=== PATIENT | male | born 1940 | race African-American/Black ===

== ENCOUNTER → 2017-04-21 | Outpatient (CLI) | payer MEDICARE, BC ==
[~2017-04-21] MED LIST: AMLO1TAB15 PO; ASPI-1159 PO; ATOR10TA PO; ATOR80TA PO; CLOP75TA16 PO; FERR-63 PO; SITA50TA3 PO; ZET10 PO
== END | disposition home or self-care (01) ==
LOC: US 09:38
PROVIDERS: ATTEND Internal Medicine Nephrology
DX: N28.1 Cyst of kidney, acquired (principal)
CPT/HCPCS: 76770

== ENCOUNTER 2018-06-28 04:12 | Inpatient (IN) | payer MEDICARE, BC ==
[~2018-06-28] VITALS: Ht 180.3 cm; Wt 74.5 kg
[2018-06-28] MEDS ORDERED: NITROGLYCERIN 0.4MG TABLET SL SL PRN (05:00)
[2018-06-28] MEDS ORDERED: MORPHINE SULFATE 4 MG/ML CPJ (NOT FOR IM USE) IV ONE (05:00)
[2018-06-28] MEDS ORDERED: ASPIRIN 81MG TABLET PO ONE (05:00)
[2018-06-28] MEDS ORDERED: ONDANSETRON HCL 4MG/2ML INJ IV ONE (05:30)
[2018-06-28 05:37] LABS: BASOPHILS % 0.3 % (0.0-2.0); HEMATOCRIT. 40.1 % (42.0-52.0); MEAN CORPUSCULAR VOLUME 89.1 fL (80.0-94.0); MONOCYTES % 2.6 % (2.0-8.0); NEUTROPHILS % 83.1 % (40.0-76.0); PLATELET 318 x1000/uL (130-400)
[2018-06-28 05:42] LABS: INR 1.2; PARTIAL THROMBOPLASTIN TIME 30.6 sec (23.4-31.0); PROTHROMBIN TIME 12.2 sec (9.1-11.1)
[2018-06-28 05:49] LABS: CHLORIDE 106 mEq/L (98-107)
[2018-06-28] MEDS ORDERED: MAGNESIUM/ALUMINUM HYDROXIDE/SIMETHICONE 30ML UDC PO PRN (08:45)
[2018-06-28] MEDS ORDERED: LEVOFLOXACIN 500MG PREMIX 100 ML IV SCH ×2 (08:45→11:00)
[2018-06-28] MEDS ORDERED: ENOXAPARIN 40MG/0.4ML SYR SUBCUT SCH (08:45)
[2018-06-28 08:50] VITALS: BP 153/82
[2018-06-28] MEDS: ENOXAPARIN 30MG/0.3ML SYR SUBCUT SCH (09:49)
[2018-06-28] MEDS: DEXT 5%/0.45% NACL 1000ML 1,000 ML IV SCH (11:05)
[2018-06-28] MEDS ORDERED: DEXTROSE 50% WATER 50ML SYRINGE IV PRN (11:15)
[2018-06-28 12:00] VITALS: BP 154/76
[2018-06-28] MEDS: BLOOD SUGAR DIAGNOSTIC STRIP TEST SCH ×3 (12:11→21:43)
[2018-06-28] MEDS: METRONIDAZOLE 500 MG PREMIX 100 ML IV SCH ×2 (12:11→21:43)
[2018-06-28] MEDS: INSULIN LISPRO 100 UNITS/ML SUBCUT SCH ×3 (12:12→21:00)
[2018-06-28] MEDS ORDERED: METRONIDAZOLE 500 MG PREMIX 100 ML IV SCH (14:00)
[2018-06-28 16:00] VITALS: BP 162/60
[2018-06-28 16:20] VITALS: BP 157/63
[2018-06-28 17:03] LABS: *AMPHETAMINES SCREEN URINE NEGATIVE (NEGATIVE); *BARBITURATES SCREEN URINE NEGATIVE (NEGATIVE); *BENZODIAZEPINES SCREEN URINE NEGATIVE (NEGATIVE); *COCAINE SCREEN URINE NEGATIVE (NEGATIVE); METHADONE URINE SCREEN NEGATIVE (NEGATIVE); OPIATES URINE SCREEN PRESUMTIVE POSITIVE (NEGATIVE); PHENCYCLIDINE URINE SCREEN NEGATIVE (NEGATIVE)
[2018-06-28 17:04] LABS: CANNABINOID URINE SCREEN NEGATIVE (NEGATIVE)
[2018-06-28] MEDS: ASPIRIN 81MG EC TABLET PO SCH (17:11)
[2018-06-28] MEDS: CLOPIDOGREL 75MG TABLET PO SCH (17:11)
[2018-06-28 20:00] VITALS: BP 124/68
[2018-06-28] MEDS: ATORVASTATIN CALCIUM 40MG TABLET PO SCH (21:42)
[2018-06-28] MEDS: AMLODIPINE 5MG TABLET PO SCH (21:42)
[2018-06-29 00:27] VITALS: BP 151/69
[2018-06-29] MEDS: DEXT 5%/0.45% NACL 1000ML 1,000 ML IV SCH ×2 (05:58→14:20)
[2018-06-29 06:09] VITALS: BP 148/64
[2018-06-29 06:51] LABS: HEMATOCRIT. 35.7 % (42.0-52.0); HEMOGLOBIN. 11.5 g/dL (14.0-18.0); MEAN CORPUSCULAR HEMOGLOBIN 28.5 pg (28.0-32.0); MEAN CORPUSCULAR VOLUME 88.7 fL (80.0-94.0); MEAN PLATELET VOLUME 8.5 fl (7.4-10.4); PLATELET 265 x1000/uL (130-400); RED BLOOD CELL COUNT 4.03 mill/uL (4.7-6.1); RED CELL DISTRIBUTION WIDTH 16.1 % (11.6-14.6)
[2018-06-29] MEDS: BLOOD SUGAR DIAGNOSTIC STRIP TEST SCH ×4 (07:40→21:00)
[2018-06-29 08:00] VITALS: BP 162/86
[2018-06-29] MEDS: INSULIN LISPRO 100 UNITS/ML SUBCUT SCH ×4 (08:10→21:00)
[2018-06-29 08:59] LABS: CHLORIDE 106 mEq/L (98-107)
[2018-06-29 09:14] LABS: LDL CHOLESTEROL 27 mg/dL (5-100)
[2018-06-29 09:15] LABS: HDL CHOLESTEROL 43 mg/dL (40-59)
[2018-06-29] MEDS: METRONIDAZOLE 500 MG PREMIX 100 ML IV SCH ×2 (09:56→22:36)
[2018-06-29] MEDS: AMLODIPINE 5MG TABLET PO SCH ×2 (09:56→22:27)
[2018-06-29] MEDS: ENOXAPARIN 30MG/0.3ML SYR SUBCUT SCH (09:56)
[2018-06-29] MEDS: CLOPIDOGREL 75MG TABLET PO SCH (09:56)
[2018-06-29] MEDS: ASPIRIN 81MG EC TABLET PO SCH (09:57)
[2018-06-29 11:14] LABS: PLATELET ESTIMATE NORMAL
[2018-06-29] MEDS ORDERED: ENOXAPARIN 40MG/0.4ML SYR SUBCUT SCH (11:30)
[2018-06-29 12:00] VITALS: BP 160/74
[2018-06-29] MEDS ORDERED: SODIUM POLYSTYRENE SULFONATE 15 G/60 ML BOT PO SCH (12:00)
[2018-06-29] MEDS: METOPROLOL TARTRATE 25MG TABLET PO SCH ×2 (14:18→21:00)
[2018-06-29] MEDS: CLONIDINE 0.1MG TABLET PO PRN (14:18)
[2018-06-29] MEDS: LEVOFLOXACIN 250MG PREMIX 50 ML IV SCH (14:18)
[2018-06-29 16:55] VITALS: BP 160/74
[2018-06-29 20:00] VITALS: BP 149/74
[2018-06-29] MEDS: ATORVASTATIN CALCIUM 40MG TABLET PO SCH (22:25)
[2018-06-29] MEDS: ACETAMINOPHEN 325MG TABLET PO PRN ×2 (22:26)
[2018-06-30] VITALS: BP 130/62
[2018-06-30 04:00] VITALS: BP 123/72
[2018-06-30] MEDS: ONDANSETRON HCL 4MG/2ML INJ IV PRN ×2 (04:12→08:25)
[2018-06-30] MEDS: DEXT 5%/0.45% NACL 1000ML 1,000 ML IV SCH ×2 (04:20→15:19)
[2018-06-30 07:04] LABS: HEMATOCRIT. 34.6 % (42.0-52.0); HEMOGLOBIN. 11.6 g/dL (14.0-18.0); MEAN CORPUSCULAR HEMOGLOBIN 29.2 pg (28.0-32.0); MEAN CORPUSCULAR VOLUME 87.3 fL (80.0-94.0); MEAN PLATELET VOLUME 8.3 fl (7.4-10.4); PLATELET 253 x1000/uL (130-400); RED BLOOD CELL COUNT 3.97 mill/uL (4.7-6.1); RED CELL DISTRIBUTION WIDTH 15.7 % (11.6-14.6)
[2018-06-30] MEDS: BLOOD SUGAR DIAGNOSTIC STRIP TEST SCH ×4 (07:40→21:44)
[2018-06-30] MEDS: INSULIN LISPRO 100 UNITS/ML SUBCUT SCH ×4 (08:10→21:00)
[2018-06-30] MEDS: ASPIRIN 81MG EC TABLET PO SCH (08:27)
[2018-06-30] MEDS: CLOPIDOGREL 75MG TABLET PO SCH (08:27)
[2018-06-30] MEDS: ENOXAPARIN 80MG/0.8ML SYR SUBCUT SCH (08:27)
[2018-06-30] MEDS: METRONIDAZOLE 500 MG PREMIX 100 ML IV SCH ×2 (08:27→21:21)
[2018-06-30] MEDS: AMLODIPINE 5MG TABLET PO SCH ×2 (08:29→21:20)
[2018-06-30] MEDS: METOPROLOL TARTRATE 25MG TABLET PO SCH ×2 (08:29→21:21)
[2018-06-30 11:06] LABS: PHOSPHORUS 3.7 mg/dL (2.5-4.9)
[2018-06-30] MEDS: LEVOFLOXACIN 250MG PREMIX 50 ML IV SCH (11:24)
[2018-06-30 12:01] VITALS: BP 137/67
[2018-06-30] MEDS: HYDROMORPHONE HCL/PF 2MG/ML CPJ IV PRN (15:23)
[2018-06-30 15:24] LABS: PLATELET ESTIMATE NORMAL
[2018-06-30 16:00] VITALS: BP 127/64
[2018-06-30 20:00] VITALS: BP 157/65
[2018-06-30] MEDS: ATORVASTATIN CALCIUM 40MG TABLET PO SCH (21:20)
[2018-07-01] VITALS: BP 159/62
[2018-07-01 04:00] VITALS: BP_SYST 59
[2018-07-01] MEDS: BLOOD SUGAR DIAGNOSTIC STRIP TEST SCH ×4 (06:37→21:00)
[2018-07-01] MEDS: DEXT 5%/0.45% NACL 1000ML 1,000 ML IV SCH ×2 (06:40→21:53)
[2018-07-01] MEDS: INSULIN LISPRO 100 UNITS/ML SUBCUT SCH ×4 (07:36→21:00)
[2018-07-01 07:44] LABS: HEMATOCRIT. 33.7 % (42.0-52.0); HEMOGLOBIN. 11.1 g/dL (14.0-18.0); MEAN CORPUSCULAR HEMOGLOBIN 29.2 pg (28.0-32.0); MEAN CORPUSCULAR VOLUME 88.8 fL (80.0-94.0); MEAN PLATELET VOLUME 8.4 fl (7.4-10.4); PLATELET 254 x1000/uL (130-400); RED CELL DISTRIBUTION WIDTH 15.8 % (11.6-14.6)
[2018-07-01 07:53] LABS: PLATELET ESTIMATE NORMAL
[2018-07-01 08:00] VITALS: BP 176/75
[2018-07-01] MEDS: CLOPIDOGREL 75MG TABLET PO SCH (10:33)
[2018-07-01] MEDS: AMLODIPINE 5MG TABLET PO SCH ×2 (10:35→21:52)
[2018-07-01] MEDS: ASPIRIN 81MG EC TABLET PO SCH (10:35)
[2018-07-01] MEDS: METOPROLOL TARTRATE 25MG TABLET PO SCH ×2 (10:35→21:53)
[2018-07-01] MEDS: METRONIDAZOLE 500 MG PREMIX 100 ML IV SCH ×2 (10:37→21:51)
[2018-07-01 12:00] VITALS: BP 124/55
[2018-07-01] MEDS: ENOXAPARIN 80MG/0.8ML SYR SUBCUT SCH (12:12)
[2018-07-01 16:00] VITALS: BP 188/70
[2018-07-01] MEDS: CLONIDINE 0.1MG TABLET PO PRN (16:56)
[2018-07-01] MEDS: HYDROMORPHONE HCL/PF 2MG/ML CPJ IV PRN (16:59)
[2018-07-01 20:00] VITALS: BP 201/78
[2018-07-01] MEDS: ATORVASTATIN CALCIUM 40MG TABLET PO SCH (21:52)
[2018-07-02] VITALS: BP 129/62
[2018-07-02] MEDS: HYDROMORPHONE HCL/PF 2MG/ML CPJ IV PRN ×2 (02:09→09:00)
[2018-07-02 04:00] VITALS: BP 119/58
[2018-07-02 07:11] LABS: HEMATOCRIT. 34.3 % (42.0-52.0); HEMOGLOBIN. 11.3 g/dL (14.0-18.0); MEAN CORPUSCULAR HEMOGLOBIN 28.8 pg (28.0-32.0); MEAN PLATELET VOLUME 8.4 fl (7.4-10.4); PLATELET 300 x1000/uL (130-400); RED BLOOD CELL COUNT 3.94 mill/uL (4.7-6.1); RED CELL DISTRIBUTION WIDTH 15.9 % (11.6-14.6)
[2018-07-02] MEDS: BLOOD SUGAR DIAGNOSTIC STRIP TEST SCH ×4 (07:40→21:18)
[2018-07-02 08:00] VITALS: BP 139/71
[2018-07-02] MEDS: METRONIDAZOLE 500 MG PREMIX 100 ML IV SCH ×2 (08:58→21:18)
[2018-07-02] MEDS: DEXT 5%/0.45% NACL 1000ML 1,000 ML IV SCH (08:58)
[2018-07-02] MEDS: CLOPIDOGREL 75MG TABLET PO SCH (08:58)
[2018-07-02] MEDS: ASPIRIN 81MG EC TABLET PO SCH (08:59)
[2018-07-02] MEDS: ENOXAPARIN 80MG/0.8ML SYR SUBCUT SCH (08:59)
[2018-07-02] MEDS: AMLODIPINE 5MG TABLET PO SCH ×2 (08:59→21:18)
[2018-07-02] MEDS: METOPROLOL TARTRATE 25MG TABLET PO SCH ×2 (08:59→21:18)
[2018-07-02] MEDS: ONDANSETRON HCL 4MG/2ML INJ IV PRN (09:00)
[2018-07-02] MEDS: INSULIN LISPRO 100 UNITS/ML SUBCUT SCH ×4 (09:19→21:00)
[2018-07-02] MEDS: LEVOFLOXACIN 250MG PREMIX 50 ML IV SCH (11:44)
[2018-07-02 12:00] VITALS: BP 123/63
[2018-07-02] MEDS: ACETAMINOPHEN 325MG TABLET PO PRN ×2 (12:40→21:17)
[2018-07-02 16:00] VITALS: BP 139/73
[2018-07-02] MEDS: DIATR MEGLU/DIATRIZOATE SOLN 30ML PO NR (17:13)
[2018-07-02 20:00] VITALS: BP 151/67
[2018-07-02 20:00] LABS: PLATELET ESTIMATE NORMAL
[2018-07-02] MEDS: ATORVASTATIN CALCIUM 40MG TABLET PO SCH (21:17)
[2018-07-03] VITALS (7 sets, daily range): BP systolic 137–163; BP diastolic 60–78
[2018-07-03] MEDS: DEXT 5%/0.45% NACL 1000ML 1,000 ML IV SCH (04:45)
[2018-07-03] MEDS: BLOOD SUGAR DIAGNOSTIC STRIP TEST SCH ×4 (06:32→21:15)
[2018-07-03 07:41] LABS: HEMATOCRIT. 31.2 % (42.0-52.0); HEMOGLOBIN. 10.4 g/dL (14.0-18.0); MEAN CORPUSCULAR HEMOGLOBIN 28.8 pg (28.0-32.0); MEAN PLATELET VOLUME 8.3 fl (7.4-10.4); PLATELET 304 x1000/uL (130-400); RED BLOOD CELL COUNT 3.62 mill/uL (4.7-6.1); RED CELL DISTRIBUTION WIDTH 15.9 % (11.6-14.6)
[2018-07-03] MEDS: ENOXAPARIN 80MG/0.8ML SYR SUBCUT SCH (08:26)
[2018-07-03] MEDS: INSULIN LISPRO 100 UNITS/ML SUBCUT SCH ×4 (08:27→21:13)
[2018-07-03] MEDS: ACETAMINOPHEN 325MG TABLET PO PRN (08:28)
[2018-07-03] MEDS: ASPIRIN 81MG EC TABLET PO SCH (08:28)
[2018-07-03] MEDS: AMLODIPINE 5MG TABLET PO SCH ×2 (08:28→21:15)
[2018-07-03] MEDS: CLOPIDOGREL 75MG TABLET PO SCH (08:28)
[2018-07-03] MEDS: METOPROLOL TARTRATE 25MG TABLET PO SCH ×2 (08:29→21:15)
[2018-07-03] MEDS: METRONIDAZOLE 500 MG PREMIX 100 ML IV SCH ×2 (08:29→21:13)
[2018-07-03] MEDS ORDERED: BUPIVACAINE HCL 0.5% (5MG/ML) 50ML ONE (10:59)
[2018-07-03] MEDS ORDERED: NORMAL SALINE 0.9% 10 ML SYR ONE (10:59)
[2018-07-03] MEDS ORDERED: BACITRACIN 50,000 UNITS/VIAL ONE (11:00)
[2018-07-03] MEDS ORDERED: PROPOFOL 200MG/20ML VIAL IV ONE (11:23)
[2018-07-03] MEDS ORDERED: ROCURONIUM BROMIDE 10MG/ML VIAL 5ML IV ONE (11:23)
[2018-07-03] MEDS ORDERED: FENTANYL CITRATE/PF 50MCG/ML 2ML VIAL ONE (11:23)
[2018-07-03] MEDS ORDERED: PHENYLEPHRINE HCL 10 MG/ML 1ML (IV VIAL) IV ONE (11:24)
[2018-07-03] MEDS ORDERED: SODIUM CHLORIDE 0.9% 10ML VIAL ONE ×2 (11:24→13:14)
[2018-07-03] MEDS ORDERED: EPHEDRINE SULFATE 50MG/ML VIAL ONE (11:24)
[2018-07-03] MEDS ORDERED: MIDAZOLAM HCL 2 MG/2 ML VIAL ONE (11:24)
[2018-07-03] MEDS ORDERED: LIDOCAINE HCL 1% 20ML VIAL (Pyxis) INJ ONE (11:24)
[2018-07-03] MEDS ORDERED: SUCCINYLCHOLINE CHLORIDE 200MG/10ML IV ONE (11:25)
[2018-07-03] MEDS ORDERED: ONDANSETRON HCL 4MG/2ML INJ IV PRN (11:30)
[2018-07-03] MEDS: DEXT 5%/0.45% NACL KCL 20MEQ/L 1,000 ML IV SCH ×2 (12:00→20:04)
[2018-07-03] MEDS ORDERED: ONDANSETRON HCL 4MG/2ML INJ ONE (12:06)
[2018-07-03] MEDS ORDERED: DEXAMETHASONE 4MG/ML 1ML VIAL ONE (12:06)
[2018-07-03] MEDS ORDERED: GLYCOPYRROLATE 0.2 MG/ML 2ML VIAL ONE (12:13)
[2018-07-03] MEDS ORDERED: NEOSTIGMINE METHYLSULFATE 1MG/ML 10 ML VIAL ONE (12:13)
[2018-07-03] MEDS ORDERED: LABETALOL HCL 5MG/ML VIAL 20ML IV ONE (13:13)
[2018-07-03] MEDS ORDERED: HYDRALAZINE 20MG/ML VIAL ONE (13:14)
[2018-07-03] MEDS ORDERED: MORPHINE SULFATE 4 MG/ML CPJ (NOT FOR IM USE) IV NR (13:45)
[2018-07-03 14:05] LABS: PLATELET ESTIMATE NORMAL
[2018-07-03] MEDS: MORPHINE SULFATE 4 MG/ML CPJ (NOT FOR IM USE) IV PRN ×2 (15:03→18:43)
[2018-07-03] MEDS: DIATR MEGLU/DIATRIZOATE SOLN 30ML PO NR (16:06)
[2018-07-03 18:08] LABS: HEMATOCRIT. 30.4 % (42.0-52.0); MEAN CORPUSCULAR HEMOGLOBIN 28.5 pg (28.0-32.0); MEAN CORPUSCULAR VOLUME 86.8 fL (80.0-94.0); MEAN PLATELET VOLUME 8.4 fl (7.4-10.4); PLATELET 305 x1000/uL (130-400); RED CELL DISTRIBUTION WIDTH 16.1 % (11.6-14.6)
[2018-07-03 20:20] LABS: PLATELET ESTIMATE NORMAL
[2018-07-03] MEDS: ATORVASTATIN CALCIUM 40MG TABLET PO SCH (21:00)
[2018-07-04] VITALS (12 sets, daily range): BP systolic 156–186; BP diastolic 66–80
[2018-07-04] MEDS: MORPHINE SULFATE 4 MG/ML CPJ (NOT FOR IM USE) IV PRN ×3 (00:59→18:23)
[2018-07-04] MEDS: CLONIDINE 0.1MG TABLET PO PRN (02:10)
[2018-07-04] MEDS: DEXT 5%/0.45% NACL KCL 20MEQ/L 1,000 ML IV SCH ×2 (06:18→17:44)
[2018-07-04] MEDS ORDERED: ENALAPRIL 2.5MG/2ML VIAL 2ML IV PRN (06:45)
[2018-07-04] MEDS: BLOOD SUGAR DIAGNOSTIC STRIP TEST SCH ×4 (07:01→21:18)
[2018-07-04] MEDS: INSULIN LISPRO 100 UNITS/ML SUBCUT SCH ×4 (07:20→21:40)
[2018-07-04] MEDS: METRONIDAZOLE 500 MG PREMIX 100 ML IV SCH ×2 (08:43→21:16)
[2018-07-04] MEDS: ASPIRIN 81MG EC TABLET PO SCH (08:44)
[2018-07-04] MEDS: METOPROLOL TARTRATE 25MG TABLET PO SCH ×2 (08:44→21:17)
[2018-07-04] MEDS: CLOPIDOGREL 75MG TABLET PO SCH (08:45)
[2018-07-04] MEDS: AMLODIPINE 5MG TABLET PO SCH ×2 (08:45→21:17)
[2018-07-04] MEDS: ENOXAPARIN 80MG/0.8ML SYR SUBCUT SCH (08:46)
[2018-07-04] MEDS ORDERED: CLONIDINE HCL 0.3MG/24HR PATCH TD SCH (09:00)
[2018-07-04] MEDS ORDERED: ENOXAPARIN 40MG/0.4ML SYR SUBCUT SCH (09:00)
[2018-07-04] MEDS: LEVOFLOXACIN 250MG PREMIX 50 ML IV SCH (11:42)
[2018-07-04 11:46] LABS: HEMATOCRIT. 30.7 % (42.0-52.0); MEAN CORPUSCULAR HEMOGLOBIN 28.1 pg (28.0-32.0); MEAN CORPUSCULAR VOLUME 86.4 fL (80.0-94.0); MEAN PLATELET VOLUME 8.5 fl (7.4-10.4); PLATELET 375 x1000/uL (130-400); RED BLOOD CELL COUNT 3.56 mill/uL (4.7-6.1); RED CELL DISTRIBUTION WIDTH 16.3 % (11.6-14.6)
[2018-07-04] MEDS: HYDRALAZINE HCL 50MG TABLET PO SCH ×2 (14:19→21:57)
[2018-07-04 16:49] LABS: PLATELET ESTIMATE NORMAL
[2018-07-04] MEDS: ATORVASTATIN CALCIUM 40MG TABLET PO SCH (21:16)
[2018-07-05] VITALS (12 sets, daily range): BP systolic 132–161; BP diastolic 57–72
[2018-07-05] MEDS: MORPHINE SULFATE 4 MG/ML CPJ (NOT FOR IM USE) IV PRN ×3 (02:04→13:08)
[2018-07-05] MEDS: DEXT 5%/0.45% NACL KCL 20MEQ/L 1,000 ML IV SCH (04:06)
[2018-07-05] MEDS: HYDRALAZINE HCL 50MG TABLET PO SCH (06:10)
[2018-07-05] MEDS: BLOOD SUGAR DIAGNOSTIC STRIP TEST SCH ×4 (06:41→20:52)
[2018-07-05 07:24] LABS: BASOPHILS % 0.2 % (0.0-2.0); EOSINOPHILS % 0.3 % (0.0-5.0); HEMATOCRIT. 26.7 % (42.0-52.0); HEMOGLOBIN. 8.9 g/dL (14.0-18.0); LYMPHOCYTES % 8.9 % (20.0-50.0); MEAN CORPUSCULAR HEMOGLOBIN 28.7 pg (28.0-32.0); MEAN CORPUSCULAR VOLUME 85.5 fL (80.0-94.0); MEAN PLATELET VOLUME 8.1 fl (7.4-10.4); MONOCYTES % 9.7 % (2.0-8.0); NEUTROPHILS % 80.9 % (40.0-76.0); PLATELET 407 x1000/uL (130-400); RED BLOOD CELL COUNT 3.12 mill/uL (4.7-6.1); RED CELL DISTRIBUTION WIDTH 15.9 % (11.6-14.6)
[2018-07-05 07:48] LABS: PHOSPHORUS 2.3 mg/dL (2.5-4.9)
[2018-07-05] MEDS: INSULIN LISPRO 100 UNITS/ML SUBCUT SCH ×4 (07:54→20:52)
[2018-07-05] MEDS: METRONIDAZOLE 500 MG PREMIX 100 ML IV SCH ×2 (08:02→20:53)
[2018-07-05] MEDS: ASPIRIN 81MG EC TABLET PO SCH (08:02)
[2018-07-05] MEDS: AMLODIPINE 5MG TABLET PO SCH ×2 (08:03→20:51)
[2018-07-05] MEDS: METOPROLOL TARTRATE 25MG TABLET PO SCH (08:03)
[2018-07-05] MEDS: CLOPIDOGREL 75MG TABLET PO SCH (08:04)
[2018-07-05] MEDS: ENOXAPARIN 80MG/0.8ML SYR SUBCUT SCH (08:05)
[2018-07-05] MEDS: SODIUM CHLORIDE 0.45% 1,000 ML IV SCH ×2 (09:00→22:14)
[2018-07-05] MEDS: HYDRALAZINE HCL 100MG TABLET PO SCH ×2 (13:09→22:13)
[2018-07-05] MEDS: ATORVASTATIN CALCIUM 40MG TABLET PO SCH (20:51)
[2018-07-05] MEDS: METOPROLOL TARTRATE 50MG TABLET PO SCH (20:52)
[2018-07-06] VITALS (12 sets, daily range): BP systolic 106–160; BP diastolic 40–73
[2018-07-06] MEDS: HYDRALAZINE HCL 100MG TABLET PO SCH ×3 (06:22→22:28)
[2018-07-06] MEDS: BLOOD SUGAR DIAGNOSTIC STRIP TEST SCH ×3 (06:53→21:04)
[2018-07-06 07:15] LABS: BASOPHILS % 0.2 % (0.0-2.0); EOSINOPHILS % 0.7 % (0.0-5.0); HEMATOCRIT. 27.1 % (42.0-52.0); HEMOGLOBIN. 9.1 g/dL (14.0-18.0); LYMPHOCYTES % 7.4 % (20.0-50.0); MEAN CORPUSCULAR HEMOGLOBIN 29.3 pg (28.0-32.0); MEAN CORPUSCULAR VOLUME 86.8 fL (80.0-94.0); MEAN PLATELET VOLUME 7.8 fl (7.4-10.4); MONOCYTES % 8.5 % (2.0-8.0); NEUTROPHILS % 83.2 % (40.0-76.0); PLATELET 434 x1000/uL (130-400); RED BLOOD CELL COUNT 3.12 mill/uL (4.7-6.1); RED CELL DISTRIBUTION WIDTH 16.2 % (11.6-14.6)
[2018-07-06] MEDS: INSULIN LISPRO 100 UNITS/ML SUBCUT SCH ×3 (07:20→21:00)
[2018-07-06] MEDS: CLOPIDOGREL 75MG TABLET PO SCH (08:15)
[2018-07-06] MEDS: ASPIRIN 81MG EC TABLET PO SCH (08:15)
[2018-07-06] MEDS: AMLODIPINE 5MG TABLET PO SCH ×2 (08:15→20:57)
[2018-07-06] MEDS: METOPROLOL TARTRATE 50MG TABLET PO SCH ×2 (08:16→20:57)
[2018-07-06] MEDS: ENOXAPARIN 80MG/0.8ML SYR SUBCUT SCH (08:17)
[2018-07-06] MEDS: MORPHINE SULFATE 4 MG/ML CPJ (NOT FOR IM USE) IV PRN (12:04)
[2018-07-06] MEDS: SODIUM CHLORIDE 0.45% 1,000 ML IV SCH (14:25)
[2018-07-06] MEDS: ATORVASTATIN CALCIUM 40MG TABLET PO SCH (20:57)
[2018-07-07] VITALS (12 sets, daily range): BP systolic 113–158; BP diastolic 41–71
[2018-07-07] MEDS: SODIUM CHLORIDE 0.45% 1,000 ML IV SCH (05:36)
[2018-07-07] MEDS: HYDRALAZINE HCL 100MG TABLET PO SCH ×3 (06:36→22:00)
[2018-07-07] MEDS: BLOOD SUGAR DIAGNOSTIC STRIP TEST SCH ×4 (06:40→21:45)
[2018-07-07] MEDS: INSULIN LISPRO 100 UNITS/ML SUBCUT SCH ×4 (06:40→21:45)
[2018-07-07 07:51] LABS: HEMATOCRIT. 24.9 % (42.0-52.0); HEMOGLOBIN. 8.2 g/dL (14.0-18.0); MEAN CORPUSCULAR HEMOGLOBIN 28.7 pg (28.0-32.0); MEAN CORPUSCULAR VOLUME 86.7 fL (80.0-94.0); MEAN PLATELET VOLUME 7.9 fl (7.4-10.4); PLATELET 431 x1000/uL (130-400); RED BLOOD CELL COUNT 2.88 mill/uL (4.7-6.1); RED CELL DISTRIBUTION WIDTH 15.7 % (11.6-14.6)
[2018-07-07] MEDS: CLOPIDOGREL 75MG TABLET PO SCH (08:46)
[2018-07-07] MEDS: METOPROLOL TARTRATE 50MG TABLET PO SCH ×2 (08:47→20:51)
[2018-07-07] MEDS: AMLODIPINE 5MG TABLET PO SCH ×2 (08:47→20:51)
[2018-07-07] MEDS: ASPIRIN 81MG TABLET NG SCH (08:47)
[2018-07-07] MEDS ORDERED: DEXTROSE 5% WATER 1,000 ML IV SCH (09:00)
[2018-07-07] MEDS: ENOXAPARIN 80MG/0.8ML SYR SUBCUT SCH (09:26)
[2018-07-07] MEDS ORDERED: HYDRALAZINE 20MG/ML VIAL IV PRN (10:00)
[2018-07-07 13:05] LABS: PLATELET ESTIMATE SLIGHTLY INCREASED
[2018-07-07] MEDS: LABETALOL HCL 20MG/4ML CARPUJECT IV SCH ×2 (13:35→17:40)
[2018-07-07] MEDS: ATORVASTATIN CALCIUM 40MG TABLET PO SCH (20:51)
[2018-07-08] VITALS: BP 146/56
[2018-07-08] MEDS: ACETAMINOPHEN 325MG TABLET PO PRN (04:29)
[2018-07-08 06:46] LABS: BASOPHILS % 0.2 % (0.0-2.0); EOSINOPHILS % 1.4 % (0.0-5.0); HEMATOCRIT. 26.4 % (42.0-52.0); HEMOGLOBIN. 8.6 g/dL (14.0-18.0); LYMPHOCYTES % 9.2 % (20.0-50.0); MEAN CORPUSCULAR HEMOGLOBIN 28.4 pg (28.0-32.0); MEAN CORPUSCULAR VOLUME 87.4 fL (80.0-94.0); MEAN PLATELET VOLUME 7.9 fl (7.4-10.4); NEUTROPHILS % 82.2 % (40.0-76.0); PLATELET 446 x1000/uL (130-400); RED BLOOD CELL COUNT 3.02 mill/uL (4.7-6.1); RED CELL DISTRIBUTION WIDTH 16.2 % (11.6-14.6)
[2018-07-08] MEDS: HYDRALAZINE HCL 100MG TABLET PO SCH ×2 (06:49→15:03)
[2018-07-08] MEDS: BLOOD SUGAR DIAGNOSTIC STRIP TEST SCH ×2 (07:20→12:20)
[2018-07-08] MEDS: INSULIN LISPRO 100 UNITS/ML SUBCUT SCH ×2 (07:50→14:48)
[2018-07-08 08:00] VITALS: BP 137/48
[2018-07-08] MEDS: AMLODIPINE 5MG TABLET PO SCH (09:12)
[2018-07-08] MEDS: CLOPIDOGREL 75MG TABLET PO SCH (09:12)
[2018-07-08] MEDS: ENOXAPARIN 80MG/0.8ML SYR SUBCUT SCH (09:12)
[2018-07-08] MEDS: ASPIRIN 81MG TABLET NG SCH (09:13)
[2018-07-08] MEDS: METOPROLOL TARTRATE 50MG TABLET PO SCH (09:13)
[2018-07-08] MEDS ORDERED: HYDRALAZINE 10 MG in SODIUM CHLORIDE 0.9% 49.5 ML IV PRN (12:30)
== END 2018-07-08 15:40 | DRG 329 ==
LOC: ER 04:12 → 7WST 05:50 → EDBEDREQTM 05:52 → EDBEDREQ 05:52 → ENRESERV 07:07 → 3WST 07-03 15:58 → 6EST 07-08 00:05
PROVIDERS: ADMIT Hospitalist; ATTEND Hospitalist
PROC: 0D9670Z Drainage of Stomach with Drainage Device, Via Natural or Artificial Opening (ICD-10-PCS; 2018-07-01)
PROC: 0DN80ZZ Release Small Intestine, Open Approach (ICD-10-PCS; 2018-07-03)
PROC: 0DB80ZZ Excision of Small Intestine, Open Approach (ICD-10-PCS; principal; 2018-07-03 11:00)
DX: K56.50 Intestinal adhesions [bands], unspecified as to partial versus complete obstruction (principal); N17.0 Acute kidney failure with tubular necrosis; K57.00 Diverticulitis of small intestine with perforation and abscess without bleeding; K55.9 Vascular disorder of intestine, unspecified; E87.0 Hyperosmolality and hypernatremia; E87.2 Acidosis; I82.411 Acute embolism and thrombosis of right femoral vein; K56.7 Ileus, unspecified; K52.9 Noninfective gastroenteritis and colitis, unspecified; E78.00 Pure hypercholesterolemia, unspecified; K57.10 Diverticulosis of small intestine without perforation or abscess without bleeding; D64.9 Anemia, unspecified; E11.22 Type 2 diabetes mellitus with diabetic chronic kidney disease; E11.51 Type 2 diabetes mellitus with diabetic peripheral angiopathy without gangrene; E78.5 Hyperlipidemia, unspecified; E11.40 Type 2 diabetes mellitus with diabetic neuropathy, unspecified; I13.10 Hypertensive heart and chronic kidney disease without heart failure, with stage 1 through stage 4 chronic kidney disease, or unspecified chronic kidney disease; I25.10 Atherosclerotic heart disease of native coronary artery without angina pectoris; R26.9 Unspecified abnormalities of gait and mobility; N18.9 Chronic kidney disease, unspecified; E87.8 Other disorders of electrolyte and fluid balance, not elsewhere classified; N40.0 Benign prostatic hyperplasia without lower urinary tract symptoms; R13.10 Dysphagia, unspecified; Z82.49 Family history of ischemic heart disease and other diseases of the circulatory system; Z83.3 Family history of diabetes mellitus; Z86.73 Personal history of transient ischemic attack (TIA), and cerebral infarction without residual deficits; I25.2 Old myocardial infarction; Z90.49 Acquired absence of other specified parts of digestive tract; Z95.1 Presence of aortocoronary bypass graft; Z79.84 Long term (current) use of oral hypoglycemic drugs; Z79.82 Long term (current) use of aspirin
CPT/HCPCS: 36415; 71045; 74018; 74176; 80048; 80061; 80305; 82962; 83036; 83605; 83735; 83880; 84100; 84484; 86850; 86900; 88307; 93005; 93306; 93970; 96372; 96374; 96375; 97116; 97162; 97164; 97530; 99285; A4216; C1725; J0330; J0360; J1100; J1170; J1650; J1815; J1956; J2250; J2270; J2370; J2405; J2704; J2710; J3010; J3490; J7042; J7070; Q9963

== ENCOUNTER 2018-07-08 15:38 | Inpatient (IN) | payer MEDICARE, BC ==
[~2018-07-08] VITALS: Ht 180.3 cm; Wt 75.3 kg
[2018-07-08] MEDS ORDERED: ONDANSETRON HCL 4MG/2ML INJ IV PRN (17:30)
[2018-07-08] MEDS ORDERED: DEXTROSE 50% WATER 50ML SYRINGE IV PRN (17:30)
[2018-07-08] MEDS ORDERED: HYDRALAZINE HCL 10MG TABLET PO PRN (17:30)
[2018-07-08] MEDS ORDERED: MAGNESIUM/ALUMINUM HYDROXIDE/SIMETHICONE 30ML UDC PO PRN (17:30)
[2018-07-08 17:31] VITALS: BP 138/51
[2018-07-08 17:49] VITALS: BP 138/51
[2018-07-08] MEDS ORDERED: LABETALOL HCL 100MG TABLET PO SCH (18:00)
[2018-07-08 20:00] VITALS: BP 148/59
[2018-07-08] MEDS: ATORVASTATIN CALCIUM 40MG TABLET PO SCH (20:43)
[2018-07-08] MEDS: METOPROLOL TARTRATE 50MG TABLET PO SCH (20:55)
[2018-07-08] MEDS: AMLODIPINE 5MG TABLET PO SCH (20:55)
[2018-07-08] MEDS: DEXTROSE 5% WATER 1,000 ML IV SCH (20:56)
[2018-07-08] MEDS: BLOOD SUGAR DIAGNOSTIC STRIP TEST SCH (20:56)
[2018-07-08] MEDS: HYDRALAZINE HCL 100MG TABLET PO SCH (21:00)
[2018-07-08 21:07] LABS: BASOPHILS % 0.5 % (0.0-2.0); EOSINOPHILS % 1.5 % (0.0-5.0); HEMATOCRIT. 31.4 % (42.0-52.0); HEMOGLOBIN. 9.9 g/dL (14.0-18.0); LYMPHOCYTES % 14.1 % (20.0-50.0); MEAN CORPUSCULAR HEMOGLOBIN 28.6 pg (28.0-32.0); MEAN PLATELET VOLUME 8.7 fl (7.4-10.4); MONOCYTES % 6.2 % (2.0-8.0); NEUTROPHILS % 77.7 % (40.0-76.0); PLATELET 428 x1000/uL (130-400); RED BLOOD CELL COUNT 3.46 mill/uL (4.7-6.1); RED CELL DISTRIBUTION WIDTH 16.8 % (11.6-14.6)
[2018-07-08] MEDS: INSULIN LISPRO 100 UNITS/ML SUBCUT SCH (21:44)
[2018-07-09] MEDS: HYDRALAZINE HCL 100MG TABLET PO SCH ×3 (05:29→22:32)
[2018-07-09] MEDS: BLOOD SUGAR DIAGNOSTIC STRIP TEST SCH ×4 (05:30→20:52)
[2018-07-09 08:29] VITALS: BP 153/51
[2018-07-09] MEDS: ASPIRIN 81MG TABLET PO SCH (08:44)
[2018-07-09] MEDS: AMLODIPINE 5MG TABLET PO SCH ×2 (08:44→20:52)
[2018-07-09] MEDS: CLOPIDOGREL 75MG TABLET PO SCH (08:44)
[2018-07-09] MEDS: ENOXAPARIN 80MG/0.8ML SYR SUBCUT SCH (08:46)
[2018-07-09] MEDS: INSULIN LISPRO 100 UNITS/ML SUBCUT SCH ×4 (08:48→20:52)
[2018-07-09] MEDS: METOPROLOL TARTRATE 50MG TABLET PO SCH ×2 (08:49→20:51)
[2018-07-09 13:26] LABS: BASOPHILS % 0.5 % (0.0-2.0); EOSINOPHILS % 1.6 % (0.0-5.0); HEMATOCRIT. 30.1 % (42.0-52.0); HEMOGLOBIN. 9.7 g/dL (14.0-18.0); LYMPHOCYTES % 12.3 % (20.0-50.0); MEAN CORPUSCULAR HEMOGLOBIN 28.5 pg (28.0-32.0); MEAN CORPUSCULAR VOLUME 88.7 fL (80.0-94.0); MONOCYTES % 5.3 % (2.0-8.0); NEUTROPHILS % 80.3 % (40.0-76.0); PLATELET 549 x1000/uL (130-400); RED CELL DISTRIBUTION WIDTH 16.1 % (11.6-14.6)
[2018-07-09] MEDS: DEXTROSE 5% WATER 1,000 ML IV SCH (18:22)
[2018-07-09 20:00] VITALS: BP 144/54
[2018-07-09] MEDS: ATORVASTATIN CALCIUM 40MG TABLET PO SCH (20:52)
[2018-07-10] MEDS: DEXTROSE 5% WATER 1,000 ML IV SCH (00:44)
[2018-07-10] MEDS: INSULIN LISPRO 100 UNITS/ML SUBCUT SCH ×4 (06:00→21:00)
[2018-07-10] MEDS: BLOOD SUGAR DIAGNOSTIC STRIP TEST SCH ×4 (06:00→21:00)
[2018-07-10] MEDS: HYDRALAZINE HCL 100MG TABLET PO SCH ×3 (06:00→21:35)
[2018-07-10 07:00] VITALS: BP 137/78
[2018-07-10 07:38] LABS: BASOPHILS % 0.3 % (0.0-2.0); HEMATOCRIT. 23.9 % (42.0-52.0); HEMOGLOBIN. 8.1 g/dL (14.0-18.0); LYMPHOCYTES % 15.6 % (20.0-50.0); MEAN CORPUSCULAR HEMOGLOBIN 29.6 pg (28.0-32.0); MEAN CORPUSCULAR VOLUME 87.1 fL (80.0-94.0); MEAN PLATELET VOLUME 8.2 fl (7.4-10.4); MONOCYTES % 6.6 % (2.0-8.0); NEUTROPHILS % 75.5 % (40.0-76.0); PLATELET 484 x1000/uL (130-400); RED BLOOD CELL COUNT 2.74 mill/uL (4.7-6.1); RED CELL DISTRIBUTION WIDTH 15.8 % (11.6-14.6)
[2018-07-10] MEDS: AMLODIPINE 5MG TABLET PO SCH ×2 (08:16→21:00)
[2018-07-10] MEDS: CLOPIDOGREL 75MG TABLET PO SCH (08:16)
[2018-07-10] MEDS: ASPIRIN 81MG TABLET PO SCH (08:17)
[2018-07-10] MEDS: ENOXAPARIN 80MG/0.8ML SYR SUBCUT SCH (08:17)
[2018-07-10] MEDS: METOPROLOL TARTRATE 50MG TABLET PO SCH ×2 (08:17→21:00)
[2018-07-10 12:44] LABS: HEMATOCRIT 24.8 % (42.0-52.0); HEMOGLOBIN 8.3 g/dL (14.0-18.0)
[2018-07-10 13:15] VITALS: BP 129/49
[2018-07-10 20:00] VITALS: BP 129/64
[2018-07-10] MEDS: ATORVASTATIN CALCIUM 40MG TABLET PO SCH (21:28)
[2018-07-11] MEDS: ACETAMINOPHEN 325MG TABLET PO PRN ×2 (02:02→20:09)
[2018-07-11] MEDS: BLOOD SUGAR DIAGNOSTIC STRIP TEST SCH ×4 (06:30→21:18)
[2018-07-11] MEDS: HYDRALAZINE HCL 100MG TABLET PO SCH ×3 (06:49→21:38)
[2018-07-11 08:05] VITALS: BP 163/59
[2018-07-11] MEDS: METOPROLOL TARTRATE 50MG TABLET PO SCH ×2 (09:00→20:08)
[2018-07-11] MEDS: AMLODIPINE 5MG TABLET PO SCH ×2 (09:00→20:08)
[2018-07-11] MEDS: ENOXAPARIN 80MG/0.8ML SYR SUBCUT SCH (10:36)
[2018-07-11] MEDS: ASPIRIN 81MG TABLET PO SCH (10:37)
[2018-07-11] MEDS: CLONIDINE HCL 0.3MG/24HR PATCH TD SCH (10:37)
[2018-07-11] MEDS: CLOPIDOGREL 75MG TABLET PO SCH (10:37)
[2018-07-11] MEDS: INSULIN LISPRO 100 UNITS/ML SUBCUT SCH ×4 (11:58→21:00)
[2018-07-11 12:55] LABS: BASOPHILS % 0.4 % (0.0-2.0); EOSINOPHILS % 1.6 % (0.0-5.0); HEMOGLOBIN. 9.3 g/dL (14.0-18.0); LYMPHOCYTES % 14.4 % (20.0-50.0); MEAN CORPUSCULAR HEMOGLOBIN 29.3 pg (28.0-32.0); MEAN CORPUSCULAR VOLUME 88.4 fL (80.0-94.0); MEAN PLATELET VOLUME 7.8 fl (7.4-10.4); NEUTROPHILS % 76.6 % (40.0-76.0); PLATELET 528 x1000/uL (130-400); RED BLOOD CELL COUNT 3.16 mill/uL (4.7-6.1); RED CELL DISTRIBUTION WIDTH 15.9 % (11.6-14.6)
[2018-07-11 13:10] LABS: CHLORIDE 114 mEq/L (98-107)
[2018-07-11 13:18] LABS: FERRITIN 241 ng/mL (22-322); PHOSPHORUS 3.3 mg/dL (2.5-4.9); PROSTRATE SPECIFIC AG TOTAL 4.85 ng/mL (0.0-4.0); TOTAL IRON BINDING CAPACITY 229 ug/dL (250-450)
[2018-07-11 14:20] LABS: VITAMIN B12 SERUM > 2000.0 pg/mL (211-911)
[2018-07-11 20:00] VITALS: BP 171/63
[2018-07-11] MEDS: ATORVASTATIN CALCIUM 40MG TABLET PO SCH (20:08)
[2018-07-11 21:35] VITALS: BP 157/62
[2018-07-12] MEDS: HYDRALAZINE HCL 100MG TABLET PO SCH ×3 (05:40→21:01)
[2018-07-12] MEDS: BLOOD SUGAR DIAGNOSTIC STRIP TEST SCH ×4 (06:25→21:01)
[2018-07-12] MEDS: ACETAMINOPHEN 325MG TABLET PO PRN (06:25)
[2018-07-12] MEDS: INSULIN LISPRO 100 UNITS/ML SUBCUT SCH ×4 (06:34→21:00)
[2018-07-12 08:00] VITALS: BP 170/51
[2018-07-12] MEDS: CLOPIDOGREL 75MG TABLET PO SCH (08:23)
[2018-07-12] MEDS: ASPIRIN 81MG TABLET PO SCH (08:23)
[2018-07-12] MEDS: AMLODIPINE 5MG TABLET PO SCH (08:23)
[2018-07-12] MEDS: ENOXAPARIN 80MG/0.8ML SYR SUBCUT SCH (08:23)
[2018-07-12] MEDS: METOPROLOL TARTRATE 50MG TABLET PO SCH ×2 (08:24→21:00)
[2018-07-12 09:09] LABS: BASOPHILS % 0.5 % (0.0-2.0); EOSINOPHILS % 1.6 % (0.0-5.0); HEMATOCRIT. 23.8 % (42.0-52.0); LYMPHOCYTES % 18.2 % (20.0-50.0); MEAN CORPUSCULAR HEMOGLOBIN 29.2 pg (28.0-32.0); MEAN CORPUSCULAR VOLUME 87.1 fL (80.0-94.0); MEAN PLATELET VOLUME 8.2 fl (7.4-10.4); MONOCYTES % 7.8 % (2.0-8.0); NEUTROPHILS % 71.9 % (40.0-76.0); PLATELET 495 x1000/uL (130-400); RED BLOOD CELL COUNT 2.74 mill/uL (4.7-6.1); RED CELL DISTRIBUTION WIDTH 15.9 % (11.6-14.6)
[2018-07-12 13:17] VITALS: BP 161/62
[2018-07-12] MEDS: NIFEDIPINE XL 60MG TAB PO SCH (17:12)
[2018-07-12 18:57] LABS: CLARITY URINE CLEAR (CLEAR); COLOR URINE YELLOW (YELLOW); KETONES URINE NEGATIVE (NEGATIVE); LEUKOCYTE ESTERASE URINE NEGATIVE (NEGATIVE); NITRITE URINE NEGATIVE (NEGATIVE); OCCULT BLOOD URINE NEGATIVE (NEGATIVE); PROTEIN URINE 1+ (NEGATIVE); SPECIFIC GRAVITY URINE 1.017 (1.005-1.030); UROBILINOGEN URINE 0.2 E.U./dL (0.2-1.0)
[2018-07-12 20:00] VITALS: BP 145/50
[2018-07-12] MEDS: ATORVASTATIN CALCIUM 40MG TABLET PO SCH (21:02)
[2018-07-13] MEDS: HYDRALAZINE HCL 100MG TABLET PO SCH ×3 (05:39→21:00)
[2018-07-13] MEDS: ACETAMINOPHEN 325MG TABLET PO PRN (05:52)
[2018-07-13] MEDS: BLOOD SUGAR DIAGNOSTIC STRIP TEST SCH ×4 (06:12→20:59)
[2018-07-13] MEDS: INSULIN LISPRO 100 UNITS/ML SUBCUT SCH ×4 (06:12→20:59)
[2018-07-13 07:07] LABS: BASOPHILS % 0.5 % (0.0-2.0); EOSINOPHILS % 1.8 % (0.0-5.0); HEMATOCRIT. 29.8 % (42.0-52.0); HEMOGLOBIN. 9.4 g/dL (14.0-18.0); LYMPHOCYTES % 21.2 % (20.0-50.0); MEAN CORPUSCULAR HEMOGLOBIN 28.5 pg (28.0-32.0); MEAN CORPUSCULAR VOLUME 90.1 fL (80.0-94.0); MEAN PLATELET VOLUME 8.6 fl (7.4-10.4); MONOCYTES % 6.8 % (2.0-8.0); NEUTROPHILS % 69.7 % (40.0-76.0); PLATELET 458 x1000/uL (130-400); RED BLOOD CELL COUNT 3.31 mill/uL (4.7-6.1); RED CELL DISTRIBUTION WIDTH 16.1 % (11.6-14.6)
[2018-07-13 08:21] VITALS: BP 154/52
[2018-07-13] MEDS: METOPROLOL TARTRATE 50MG TABLET PO SCH ×2 (09:00→21:00)
[2018-07-13] MEDS: NIFEDIPINE XL 60MG TAB PO SCH ×2 (09:00→17:00)
[2018-07-13] MEDS: CITRIC ACID/SODIUM CITRATE SOLN 30ML UDC PO SCH ×2 (10:49→18:36)
[2018-07-13] MEDS: ENOXAPARIN 40MG/0.4ML SYR SUBCUT SCH (14:37)
[2018-07-13] MEDS: ASPIRIN 81MG EC TABLET PO SCH (14:38)
[2018-07-13] MEDS: DOCUSATE SODIUM 100MG CAPSULE PO SCH (18:36)
[2018-07-13 20:00] VITALS: BP 169/60
[2018-07-13] MEDS: ATORVASTATIN CALCIUM 40MG TABLET PO SCH (21:00)
[2018-07-13] MEDS: POLYETHYLENE GLYCOL 3350 (17GM) 1 DOSE PACK PO SCH (21:03)
[2018-07-14] VITALS (7 sets, daily range): BP systolic 124–181; BP diastolic 49–65
[2018-07-14] MEDS: BLOOD SUGAR DIAGNOSTIC STRIP TEST SCH ×4 (06:30→21:13)
[2018-07-14] MEDS: INSULIN LISPRO 100 UNITS/ML SUBCUT SCH ×4 (06:34→21:00)
[2018-07-14] MEDS: HYDRALAZINE HCL 100MG TABLET PO SCH ×3 (06:35→21:12)
[2018-07-14] MEDS: CITRIC ACID/SODIUM CITRATE SOLN 30ML UDC PO SCH ×2 (08:12→17:43)
[2018-07-14] MEDS: DOCUSATE SODIUM 100MG CAPSULE PO SCH ×2 (08:12→17:43)
[2018-07-14] MEDS: ASPIRIN 81MG EC TABLET PO SCH (08:13)
[2018-07-14] MEDS: CLONIDINE 0.1MG TABLET PO PRN (08:13)
[2018-07-14] MEDS: METOPROLOL TARTRATE 50MG TABLET PO SCH ×2 (08:14→21:12)
[2018-07-14] MEDS: NIFEDIPINE XL 60MG TAB PO SCH ×2 (08:14→17:44)
[2018-07-14] MEDS: ENOXAPARIN 40MG/0.4ML SYR SUBCUT SCH (13:23)
[2018-07-14] MEDS ORDERED: ENOXAPARIN 40MG/0.4ML SYR SUBCUT NR (15:04)
[2018-07-14 16:18] LABS: BASOPHILS % 0.5 % (0.0-2.0); EOSINOPHILS % 1.5 % (0.0-5.0); HEMATOCRIT. 24.9 % (42.0-52.0); HEMOGLOBIN. 8.2 g/dL (14.0-18.0); LYMPHOCYTES % 16.7 % (20.0-50.0); MEAN CORPUSCULAR HEMOGLOBIN 28.9 pg (28.0-32.0); MEAN CORPUSCULAR VOLUME 87.9 fL (80.0-94.0); MEAN PLATELET VOLUME 8.3 fl (7.4-10.4); NEUTROPHILS % 73.3 % (40.0-76.0); PLATELET 496 x1000/uL (130-400); RED BLOOD CELL COUNT 2.83 mill/uL (4.7-6.1)
[2018-07-14] MEDS: POLYETHYLENE GLYCOL 3350 (17GM) 1 DOSE PACK PO SCH (21:00)
[2018-07-14] MEDS: ATORVASTATIN CALCIUM 40MG TABLET PO SCH (21:12)
[2018-07-14] MEDS: ACETAMINOPHEN 325MG TABLET PO PRN (23:01)
[2018-07-14 23:46] LABS: INR 1.1; PROTHROMBIN TIME 11.5 sec (9.1-11.1)
[2018-07-15 04:16] LABS: 25-HYDROXY VITAMIN D3 16 ng/mL (.)
[2018-07-15] MEDS: HYDRALAZINE HCL 100MG TABLET PO SCH ×3 (06:18→21:00)
[2018-07-15] MEDS: INSULIN LISPRO 100 UNITS/ML SUBCUT SCH ×4 (06:19→21:00)
[2018-07-15] MEDS: BLOOD SUGAR DIAGNOSTIC STRIP TEST SCH ×4 (06:19→21:00)
[2018-07-15 07:55] VITALS: BP 130/49
[2018-07-15] MEDS: METOPROLOL TARTRATE 50MG TABLET PO SCH ×2 (09:00→21:00)
[2018-07-15] MEDS ORDERED: ENOXAPARIN 80MG/0.8ML SYR SUBCUT SCH (09:00)
[2018-07-15] MEDS: NIFEDIPINE XL 60MG TAB PO SCH ×2 (09:00→17:44)
[2018-07-15] MEDS: CITRIC ACID/SODIUM CITRATE SOLN 30ML UDC PO SCH ×2 (09:03→17:43)
[2018-07-15] MEDS: DOCUSATE SODIUM 100MG CAPSULE PO SCH ×2 (09:03→17:48)
[2018-07-15] MEDS: ENOXAPARIN 80MG/0.8ML SYR SUBCUT SCH (14:37)
[2018-07-15 18:06] LABS: BASOPHILS % 0.8 % (0.0-2.0); EOSINOPHILS % 1.5 % (0.0-5.0); LYMPHOCYTES % 20.3 % (20.0-50.0); MEAN CORPUSCULAR HEMOGLOBIN 29.3 pg (28.0-32.0); MEAN CORPUSCULAR VOLUME 88.4 fL (80.0-94.0); MEAN PLATELET VOLUME 8.2 fl (7.4-10.4); MONOCYTES % 8.4 % (2.0-8.0); PLATELET 415 x1000/uL (130-400); RED BLOOD CELL COUNT 2.72 mill/uL (4.7-6.1); RED CELL DISTRIBUTION WIDTH 15.9 % (11.6-14.6)
[2018-07-15 20:00] VITALS: BP 140/48
[2018-07-15] MEDS: ATORVASTATIN CALCIUM 40MG TABLET PO SCH (20:58)
[2018-07-15] MEDS: POLYETHYLENE GLYCOL 3350 (17GM) 1 DOSE PACK PO SCH (21:00)
[2018-07-16] VITALS (9 sets, daily range): BP systolic 123–155; BP diastolic 48–56
[2018-07-16] MEDS: HYDRALAZINE HCL 100MG TABLET PO SCH ×3 (06:03→23:18)
[2018-07-16] MEDS: INSULIN LISPRO 100 UNITS/ML SUBCUT SCH ×4 (06:04→20:40)
[2018-07-16] MEDS: BLOOD SUGAR DIAGNOSTIC STRIP TEST SCH ×4 (06:04→20:40)
[2018-07-16 08:16] LABS: EOSINOPHILS % 2.2 % (0.0-5.0); LYMPHOCYTES % 25.8 % (20.0-50.0); MEAN CORPUSCULAR HEMOGLOBIN 28.8 pg (28.0-32.0); MEAN CORPUSCULAR VOLUME 88.2 fL (80.0-94.0); MEAN PLATELET VOLUME 8.6 fl (7.4-10.4); MONOCYTES % 9.4 % (2.0-8.0); NEUTROPHILS % 61.6 % (40.0-76.0); PLATELET 382 x1000/uL (130-400); RED BLOOD CELL COUNT 2.39 mill/uL (4.7-6.1); RED CELL DISTRIBUTION WIDTH 15.9 % (11.6-14.6)
[2018-07-16] MEDS: METOPROLOL TARTRATE 50MG TABLET PO SCH ×2 (08:19→20:39)
[2018-07-16] MEDS: CITRIC ACID/SODIUM CITRATE SOLN 30ML UDC PO SCH ×2 (08:19→17:40)
[2018-07-16] MEDS: DOCUSATE SODIUM 100MG CAPSULE PO SCH ×2 (08:19→17:40)
[2018-07-16] MEDS: NIFEDIPINE XL 60MG TAB PO SCH ×2 (08:19→17:40)
[2018-07-16] MEDS: ACETAMINOPHEN 325MG TABLET PO PRN (08:20)
[2018-07-16 08:34] LABS: HEMATOCRIT. 21.1 % (42.0-52.0); HEMOGLOBIN. 6.9 g/dL (14.0-18.0)
[2018-07-16] MEDS: ENOXAPARIN 80MG/0.8ML SYR SUBCUT SCH (13:13)
[2018-07-16 18:52] LABS: BASOPHILS % 0.6 % (0.0-2.0); EOSINOPHILS % 2.2 % (0.0-5.0); HEMATOCRIT. 26.3 % (42.0-52.0); HEMOGLOBIN. 8.9 g/dL (14.0-18.0); LYMPHOCYTES % 21.6 % (20.0-50.0); MEAN CORPUSCULAR HEMOGLOBIN 29.2 pg (28.0-32.0); MEAN CORPUSCULAR VOLUME 86.5 fL (80.0-94.0); MEAN PLATELET VOLUME 8.2 fl (7.4-10.4); NEUTROPHILS % 64.6 % (40.0-76.0); PLATELET 400 x1000/uL (130-400); RED BLOOD CELL COUNT 3.04 mill/uL (4.7-6.1); RED CELL DISTRIBUTION WIDTH 15.6 % (11.6-14.6)
[2018-07-16] MEDS: ATORVASTATIN CALCIUM 40MG TABLET PO SCH (20:39)
[2018-07-16] MEDS: POLYETHYLENE GLYCOL 3350 (17GM) 1 DOSE PACK PO SCH (20:40)
[2018-07-17] MEDS: BLOOD SUGAR DIAGNOSTIC STRIP TEST SCH ×4 (06:10→20:52)
[2018-07-17] MEDS: HYDRALAZINE HCL 100MG TABLET PO SCH ×3 (06:11→21:20)
[2018-07-17 08:00] VITALS: BP 138/79
[2018-07-17] MEDS: CITRIC ACID/SODIUM CITRATE SOLN 30ML UDC PO SCH ×2 (08:35→18:09)
[2018-07-17] MEDS: DOCUSATE SODIUM 100MG CAPSULE PO SCH ×2 (08:35→18:09)
[2018-07-17] MEDS: METOPROLOL TARTRATE 50MG TABLET PO SCH ×2 (08:36→20:24)
[2018-07-17] MEDS: INSULIN LISPRO 100 UNITS/ML SUBCUT SCH ×4 (08:40→20:52)
[2018-07-17 08:49] LABS: BASOPHILS % 0.7 % (0.0-2.0); EOSINOPHILS % 1.9 % (0.0-5.0); HEMATOCRIT. 23.6 % (42.0-52.0); HEMOGLOBIN. 7.9 g/dL (14.0-18.0); LYMPHOCYTES % 16.9 % (20.0-50.0); MEAN CORPUSCULAR HEMOGLOBIN 29.1 pg (28.0-32.0); MEAN CORPUSCULAR VOLUME 87.1 fL (80.0-94.0); MEAN PLATELET VOLUME 8.4 fl (7.4-10.4); MONOCYTES % 9.4 % (2.0-8.0); NEUTROPHILS % 71.1 % (40.0-76.0); PLATELET 376 x1000/uL (130-400); RED CELL DISTRIBUTION WIDTH 15.9 % (11.6-14.6)
[2018-07-17] MEDS: NIFEDIPINE XL 60MG TAB PO SCH ×2 (09:00→18:09)
[2018-07-17 20:00] VITALS: BP 172/63
[2018-07-17] MEDS: CLONIDINE 0.1MG TABLET PO PRN (20:24)
[2018-07-17] MEDS: ATORVASTATIN CALCIUM 40MG TABLET PO SCH (20:24)
[2018-07-17] MEDS: POLYETHYLENE GLYCOL 3350 (17GM) 1 DOSE PACK PO SCH (20:24)
[2018-07-17 22:35] VITALS: BP 162/51
[2018-07-17 23:35] VITALS: BP 134/44
[2018-07-18] MEDS: HYDRALAZINE HCL 100MG TABLET PO SCH ×2 (05:38→14:00)
[2018-07-18] MEDS: BLOOD SUGAR DIAGNOSTIC STRIP TEST SCH ×4 (06:06→21:27)
[2018-07-18] MEDS: INSULIN LISPRO 100 UNITS/ML SUBCUT SCH ×4 (06:23→21:00)
[2018-07-18 06:50] LABS: HEMATOCRIT 23.7 % (42.0-52.0); HEMOGLOBIN 7.9 g/dL (14.0-18.0); MEAN CORPUSCULAR HEMOGLOBIN 29.5 pg (28.0-32.0); MEAN CORPUSCULAR VOLUME 88.2 fL (80.0-94.0); PLATELET 329 x1000/uL (130-400); RED BLOOD CELL COUNT 2.69 mill/uL (4.7-6.1); RED CELL DISTRIBUTION WIDTH 15.5 % (11.6-14.6)
[2018-07-18 08:12] VITALS: BP 142/45
[2018-07-18] MEDS: DOCUSATE SODIUM 100MG CAPSULE PO SCH ×3 (08:32→17:02)
[2018-07-18] MEDS: NIFEDIPINE XL 60MG TAB PO SCH ×2 (08:33→16:47)
[2018-07-18] MEDS: METOPROLOL TARTRATE 50MG TABLET PO SCH ×2 (08:33→21:00)
[2018-07-18] MEDS: CLONIDINE HCL 0.3MG/24HR PATCH TD SCH (08:35)
[2018-07-18] MEDS: ACETAMINOPHEN 325MG TABLET PO PRN (09:36)
[2018-07-18] MEDS ORDERED: LACTULOSE 20G/30ML UDC PO PRN (12:30)
[2018-07-18] MEDS ORDERED: LACTULOSE 20G/30ML UDC PO SCH (14:43)
[2018-07-18 20:00] VITALS: BP 190/64
[2018-07-18] MEDS: HYDRALAZINE HCL 50MG TABLET PO SCH (20:03)
[2018-07-18] MEDS: POLYETHYLENE GLYCOL 3350 (17GM) 1 DOSE PACK PO SCH (21:00)
[2018-07-18] MEDS ORDERED: EPOETIN ALFA 10000UNITS/ML VIAL SUBCUT SCH (21:00)
[2018-07-18] MEDS: CLONIDINE 0.1MG TABLET PO PRN (21:26)
[2018-07-18] MEDS: ATORVASTATIN CALCIUM 40MG TABLET PO SCH (21:26)
[2018-07-19] MEDS: CLONIDINE 0.1MG TABLET PO PRN (03:31)
[2018-07-19 06:30] VITALS: BP 170/70
[2018-07-19] MEDS: BLOOD SUGAR DIAGNOSTIC STRIP TEST SCH ×4 (06:37→21:26)
[2018-07-19] MEDS: INSULIN LISPRO 100 UNITS/ML SUBCUT SCH ×4 (06:38→21:00)
[2018-07-19] MEDS: HYDRALAZINE HCL 50MG TABLET PO SCH (06:38)
[2018-07-19 06:54] LABS: BASOPHILS % 0.8 % (0.0-2.0); EOSINOPHILS % 2.9 % (0.0-5.0); HEMATOCRIT. 23.7 % (42.0-52.0); HEMOGLOBIN. 7.9 g/dL (14.0-18.0); LYMPHOCYTES % 20.5 % (20.0-50.0); MEAN CORPUSCULAR HEMOGLOBIN 29.3 pg (28.0-32.0); MEAN CORPUSCULAR VOLUME 87.5 fL (80.0-94.0); MEAN PLATELET VOLUME 8.2 fl (7.4-10.4); MONOCYTES % 10.8 % (2.0-8.0); PLATELET 337 x1000/uL (130-400); RED BLOOD CELL COUNT 2.71 mill/uL (4.7-6.1); RED CELL DISTRIBUTION WIDTH 15.9 % (11.6-14.6)
[2018-07-19 08:00] VITALS: BP 165/53
[2018-07-19 08:30] VITALS: BP 138/50
[2018-07-19] MEDS: METOPROLOL TARTRATE 50MG TABLET PO SCH (08:37)
[2018-07-19] MEDS: NIFEDIPINE XL 60MG TAB PO SCH ×2 (08:37→16:44)
[2018-07-19] MEDS: LOSARTAN POTASSIUM 50 MG TABLET PO SCH ×2 (08:38→16:44)
[2018-07-19] MEDS: ACETAMINOPHEN 325MG TABLET PO PRN (10:16)
[2018-07-19] MEDS: HYDRALAZINE HCL 100MG TABLET PO SCH ×2 (13:32→21:26)
[2018-07-19] MEDS ORDERED: ENOXAPARIN 80MG/0.8ML SYR SUBCUT SCH (14:00)
[2018-07-19] MEDS: DOCUSATE SODIUM 100MG CAPSULE PO SCH (16:44)
[2018-07-19 20:04] VITALS: BP 145/55
[2018-07-19] MEDS: METOPROLOL TARTRATE 25MG TABLET PO SCH (21:00)
[2018-07-19] MEDS: POLYETHYLENE GLYCOL 3350 (17GM) 1 DOSE PACK PO SCH (21:00)
[2018-07-19] MEDS: ATORVASTATIN CALCIUM 40MG TABLET PO SCH (21:26)
[2018-07-20] MEDS: ACETAMINOPHEN 325MG TABLET PO PRN (05:39)
[2018-07-20] MEDS: BLOOD SUGAR DIAGNOSTIC STRIP TEST SCH (05:39)
[2018-07-20] MEDS: HYDRALAZINE HCL 100MG TABLET PO SCH (05:39)
[2018-07-20 07:34] LABS: BASOPHILS % 0.5 % (0.0-2.0); EOSINOPHILS % 2.6 % (0.0-5.0); HEMOGLOBIN. 8.2 g/dL (14.0-18.0); LYMPHOCYTES % 19.7 % (20.0-50.0); MEAN CORPUSCULAR HEMOGLOBIN 28.9 pg (28.0-32.0); MEAN CORPUSCULAR VOLUME 87.8 fL (80.0-94.0); MEAN PLATELET VOLUME 8.4 fl (7.4-10.4); MONOCYTES % 11.5 % (2.0-8.0); NEUTROPHILS % 65.7 % (40.0-76.0); PLATELET 318 x1000/uL (130-400); RED BLOOD CELL COUNT 2.85 mill/uL (4.7-6.1); RED CELL DISTRIBUTION WIDTH 15.8 % (11.6-14.6)
[2018-07-20 08:00] VITALS: BP 123/45
[2018-07-20] MEDS: NIFEDIPINE XL 60MG TAB PO SCH (09:00)
[2018-07-20] MEDS: METOPROLOL TARTRATE 25MG TABLET PO SCH (09:00)
[2018-07-20] MEDS: INSULIN LISPRO 100 UNITS/ML SUBCUT SCH (09:00)
[2018-07-20] MEDS: DOCUSATE SODIUM 100MG CAPSULE PO SCH (09:01)
[2018-07-20] MEDS: LOSARTAN POTASSIUM 50 MG TABLET PO SCH (09:01)
[2018-07-20 11:36] VITALS: BP 123/45
[2018-07-20 12:00] VITALS: BP 116/52
== END 2018-07-20 14:20 | disposition home health service (06) | DRG 73 ==
PROVIDERS: ADMIT Physical Medicine & Rehabilitation Spinal Cord Injury Medicine; ATTEND Hospitalist
PROC: 30233N1 Transfusion of Nonautologous Red Blood Cells into Peripheral Vein, Percutaneous Approach (ICD-10-PCS; principal; 2018-07-16)
DX: G62.81 Critical illness polyneuropathy (principal); N17.0 Acute kidney failure with tubular necrosis; I82.411 Acute embolism and thrombosis of right femoral vein; E87.0 Hyperosmolality and hypernatremia; K55.9 Vascular disorder of intestine, unspecified; E11.22 Type 2 diabetes mellitus with diabetic chronic kidney disease; I25.10 Atherosclerotic heart disease of native coronary artery without angina pectoris; E78.5 Hyperlipidemia, unspecified; D64.9 Anemia, unspecified; N18.9 Chronic kidney disease, unspecified; Z86.73 Personal history of transient ischemic attack (TIA), and cerebral infarction without residual deficits; E11.51 Type 2 diabetes mellitus with diabetic peripheral angiopathy without gangrene; I12.9 Hypertensive chronic kidney disease with stage 1 through stage 4 chronic kidney disease, or unspecified chronic kidney disease; E78.00 Pure hypercholesterolemia, unspecified; I25.2 Old myocardial infarction; R13.10 Dysphagia, unspecified; Z95.1 Presence of aortocoronary bypass graft; R53.81 Other malaise; R26.9 Unspecified abnormalities of gait and mobility; E55.9 Vitamin D deficiency, unspecified; K57.90 Diverticulosis of intestine, part unspecified, without perforation or abscess without bleeding; R97.20 Elevated prostate specific antigen [PSA]; E11.42 Type 2 diabetes mellitus with diabetic polyneuropathy; Z82.49 Family history of ischemic heart disease and other diseases of the circulatory system; Z79.899 Other long term (current) drug therapy; F41.9 Anxiety disorder, unspecified; F06.31 Mood disorder due to known physiological condition with depressive features; J44.9 Chronic obstructive pulmonary disease, unspecified; Z87.891 Personal history of nicotine dependence
CPT/HCPCS: 36415; 71045; 78582; 80048; 82270; 82306; 82607; 82728; 82746; 82962; 83540; 83550; 83735; 84100; 84153; 84443; 85014; 85018; 85027; 86850; 86900; 86920; 92523; 92610; 93970; 97110; 97116; 97162; 97167; 97530; 97535; A9558; C1893; G0515; J0885; J1650; J1815; J7060; J7070; P9016; G0103

== ENCOUNTER 2020-04-18 14:50 | Inpatient (IN) | payer MEDICARE, BC ==
[~2020-04-18] VITALS: Ht 180.3 cm; Wt 70.3 kg
[~2020-04-18 14:50] MED LIST changes: -AMLO1TAB15 PO; -ASPI-1159 PO; -ATOR10TA PO; -ATOR80TA PO; -CLOP75TA16 PO; +EZET10TA13 PO; -ZET10 PO
[2020-04-18 16:04] LABS: BASOPHILS % 0.3 % (0.0-2.0); EOSINOPHILS % 1.1 % (0.0-5.0); HEMATOCRIT. 26.7 % (42.0-52.0); HEMOGLOBIN. 8.5 g/dL (14.0-18.0); LYMPHOCYTES % 18.2 % (20.0-50.0); MEAN CORPUSCULAR HEMOGLOBIN 28.4 pg (28.0-32.0); MEAN CORPUSCULAR VOLUME 89.8 fL (80.0-94.0); MEAN PLATELET VOLUME 7.7 fl (7.4-10.4); NEUTROPHILS % 71.4 % (40.0-76.0); PLATELET 257 x1000/uL (130-400); RED BLOOD CELL COUNT 2.98 mill/uL (4.7-6.1); RED CELL DISTRIBUTION WIDTH 19.7 % (11.6-14.6)
[2020-04-18 16:08] LABS: CHLORIDE 112 mEq/L (98-107)
[2020-04-18 16:12] LABS: PROTHROMBIN TIME 10.9 sec (9.6-11.0)
[2020-04-18] MEDS ORDERED: DEXTROSE 50% WATER 50ML SYRINGE IV PRN (16:30)
[2020-04-18] MEDS ORDERED: ONDANSETRON HCL 4MG/2ML INJ IV PRN (16:30)
[2020-04-18] MEDS ORDERED: ACETAMINOPHEN 325MG TABLET PO PRN (16:30)
[2020-04-18] MEDS: SODIUM CHLORIDE 0.9% 1,000 ML IV SCH (16:48)
[2020-04-18] MEDS: BLOOD SUGAR DIAGNOSTIC STRIP TEST SCH ×2 (16:53→21:00)
[2020-04-18] MEDS ORDERED: SODIUM POLYSTYRENE SULFONATE 15 G/60 ML BOT PO NR (17:00)
[2020-04-18] MEDS: INSULIN LISPRO 100 UNITS/ML SUBCUT SCH ×2 (17:04→21:00)
[2020-04-18 17:34] LABS: CLARITY URINE CLEAR (CLEAR); COLOR URINE YELLOW (YELLOW); KETONES URINE NEGATIVE (NEGATIVE); LEUKOCYTE ESTERASE URINE NEGATIVE (NEGATIVE); NITRITE URINE NEGATIVE (NEGATIVE); OCCULT BLOOD URINE NEGATIVE (NEGATIVE); PROTEIN URINE 3+ (NEGATIVE); SPECIFIC GRAVITY URINE 1.015 (1.005-1.030); UROBILINOGEN URINE 0.2 E.U./dL (0.2-1.0)
[2020-04-18 19:36] LABS: BASOPHILS % 0.5 % (0.0-2.0); EOSINOPHILS % 1.3 % (0.0-5.0); HEMATOCRIT. 23.8 % (42.0-52.0); HEMOGLOBIN. 7.4 g/dL (14.0-18.0); LYMPHOCYTES % 16.2 % (20.0-50.0); MEAN CORPUSCULAR HEMOGLOBIN 28.5 pg (28.0-32.0); MEAN PLATELET VOLUME 7.9 fl (7.4-10.4); MONOCYTES % 9.4 % (2.0-8.0); NEUTROPHILS % 72.6 % (40.0-76.0); PLATELET 215 x1000/uL (130-400); RED BLOOD CELL COUNT 2.58 mill/uL (4.7-6.1); RED CELL DISTRIBUTION WIDTH 19.7 % (11.6-14.6)
[2020-04-18] MEDS ORDERED: TRAZODONE HCL 50MG TABLET PO PRN (20:00)
[2020-04-18] MEDS: ATORVASTATIN CALCIUM 20MG TABLET PO SCH (21:00)
[2020-04-18] MEDS: DILTIAZEM HCL 60MG TABLET PO SCH (21:11)
[2020-04-18 23:15] VITALS: BP 126/63
[2020-04-19] VITALS (12 sets, daily range): BP systolic 142–189; BP diastolic 47–71
[2020-04-19 00:53] LABS: BASOPHILS % 0.5 % (0.0-2.0); EOSINOPHILS % 2.2 % (0.0-5.0); HEMATOCRIT. 21.5 % (42.0-52.0); LYMPHOCYTES % 18.6 % (20.0-50.0); MEAN CORPUSCULAR HEMOGLOBIN 28.9 pg (28.0-32.0); MEAN CORPUSCULAR VOLUME 90.9 fL (80.0-94.0); MEAN PLATELET VOLUME 7.4 fl (7.4-10.4); NEUTROPHILS % 67.7 % (40.0-76.0); PLATELET 220 x1000/uL (130-400); RED BLOOD CELL COUNT 2.36 mill/uL (4.7-6.1); RED CELL DISTRIBUTION WIDTH 19.3 % (11.6-14.6)
[2020-04-19 01:04] LABS: HEMOGLOBIN. 6.8 g/dL (14.0-18.0)
[2020-04-19] MEDS: SODIUM CHLORIDE 0.9% 1,000 ML IV SCH ×2 (04:40→18:07)
[2020-04-19] MEDS: BLOOD SUGAR DIAGNOSTIC STRIP TEST SCH ×4 (05:30→19:57)
[2020-04-19] MEDS: INSULIN LISPRO 100 UNITS/ML SUBCUT SCH ×4 (06:06→20:44)
[2020-04-19] MEDS: DILTIAZEM HCL 60MG TABLET PO SCH (06:16)
[2020-04-19 06:51] LABS: BASOPHILS % 0.5 % (0.0-2.0); EOSINOPHILS % 2.8 % (0.0-5.0); HEMATOCRIT. 25.4 % (42.0-52.0); HEMOGLOBIN. 8.2 g/dL (14.0-18.0); LYMPHOCYTES % 16.7 % (20.0-50.0); MEAN CORPUSCULAR HEMOGLOBIN 28.8 pg (28.0-32.0); MEAN CORPUSCULAR VOLUME 89.6 fL (80.0-94.0); MONOCYTES % 8.5 % (2.0-8.0); NEUTROPHILS % 71.5 % (40.0-76.0); PLATELET 196 x1000/uL (130-400); RED BLOOD CELL COUNT 2.84 mill/uL (4.7-6.1); RED CELL DISTRIBUTION WIDTH 17.8 % (11.6-14.6)
[2020-04-19 07:21] LABS: CHLORIDE 117 mEq/L (98-107)
[2020-04-19 11:59] LABS: BASOPHILS % 0.7 % (0.0-2.0); EOSINOPHILS % 1.6 % (0.0-5.0); HEMATOCRIT. 24.3 % (42.0-52.0); HEMOGLOBIN. 7.9 g/dL (14.0-18.0); LYMPHOCYTES % 12.5 % (20.0-50.0); MEAN CORPUSCULAR HEMOGLOBIN 29.3 pg (28.0-32.0); MEAN CORPUSCULAR VOLUME 89.6 fL (80.0-94.0); MEAN PLATELET VOLUME 7.7 fl (7.4-10.4); MONOCYTES % 5.6 % (2.0-8.0); NEUTROPHILS % 79.6 % (40.0-76.0); PLATELET 212 x1000/uL (130-400); RED BLOOD CELL COUNT 2.71 mill/uL (4.7-6.1); RED CELL DISTRIBUTION WIDTH 17.8 % (11.6-14.6)
[2020-04-19] MEDS: FERROUS SULFATE 325MG TABLET PO SCH ×2 (12:29→18:06)
[2020-04-19] MEDS: SODIUM BICARBONATE 650 MG TABLET PO SCH ×3 (12:29→18:07)
[2020-04-19 20:30] LABS: BASOPHILS % 0.4 % (0.0-2.0); EOSINOPHILS % 1.7 % (0.0-5.0); HEMATOCRIT. 26.5 % (42.0-52.0); HEMOGLOBIN. 8.5 g/dL (14.0-18.0); LYMPHOCYTES % 11.9 % (20.0-50.0); MEAN CORPUSCULAR HEMOGLOBIN 29.1 pg (28.0-32.0); MEAN CORPUSCULAR VOLUME 90.3 fL (80.0-94.0); MEAN PLATELET VOLUME 7.9 fl (7.4-10.4); MONOCYTES % 7.6 % (2.0-8.0); NEUTROPHILS % 78.4 % (40.0-76.0); PLATELET 220 x1000/uL (130-400); RED BLOOD CELL COUNT 2.93 mill/uL (4.7-6.1); RED CELL DISTRIBUTION WIDTH 18.1 % (11.6-14.6)
[2020-04-19] MEDS: ATORVASTATIN CALCIUM 20MG TABLET PO SCH (20:56)
[2020-04-19] MEDS: AMLODIPINE 5MG TABLET PO SCH (20:56)
[2020-04-20] VITALS: BP 184/60
[2020-04-20 00:35] LABS: BASOPHILS % 1.1 % (0.0-2.0); EOSINOPHILS % 2.1 % (0.0-5.0); HEMATOCRIT. 29.7 % (42.0-52.0); HEMOGLOBIN. 9.6 g/dL (14.0-18.0); MEAN CORPUSCULAR VOLUME 89.6 fL (80.0-94.0); MEAN PLATELET VOLUME 7.8 fl (7.4-10.4); MONOCYTES % 8.1 % (2.0-8.0); NEUTROPHILS % 73.7 % (40.0-76.0); PLATELET 235 x1000/uL (130-400); RED BLOOD CELL COUNT 3.31 mill/uL (4.7-6.1); RED CELL DISTRIBUTION WIDTH 17.9 % (11.6-14.6)
[2020-04-20] MEDS: CLONIDINE 0.1MG TABLET PO PRN ×2 (01:01→08:30)
[2020-04-20 04:00] VITALS: BP 167/60
[2020-04-20] MEDS: BLOOD SUGAR DIAGNOSTIC STRIP TEST SCH ×4 (06:30→21:04)
[2020-04-20] MEDS: INSULIN LISPRO 100 UNITS/ML SUBCUT SCH ×4 (06:30→21:00)
[2020-04-20 07:51] LABS: BASOPHILS % 0.6 % (0.0-2.0); EOSINOPHILS % 2.4 % (0.0-5.0); HEMATOCRIT. 26.2 % (42.0-52.0); HEMOGLOBIN. 8.5 g/dL (14.0-18.0); MEAN CORPUSCULAR HEMOGLOBIN 28.7 pg (28.0-32.0); MEAN CORPUSCULAR VOLUME 89.2 fL (80.0-94.0); MONOCYTES % 8.1 % (2.0-8.0); NEUTROPHILS % 74.9 % (40.0-76.0); PLATELET 220 x1000/uL (130-400); RED BLOOD CELL COUNT 2.94 mill/uL (4.7-6.1); RED CELL DISTRIBUTION WIDTH 17.6 % (11.6-14.6)
[2020-04-20 08:03] LABS: CHLORIDE 116 mEq/L (98-107)
[2020-04-20] MEDS: SODIUM BICARBONATE 650 MG TABLET PO SCH ×3 (08:29→17:06)
[2020-04-20] MEDS: AMLODIPINE 5MG TABLET PO SCH ×2 (08:30→21:06)
[2020-04-20] MEDS: FERROUS SULFATE 325MG TABLET PO SCH ×3 (08:30→17:06)
[2020-04-20 12:00] VITALS: BP 160/67
[2020-04-20] MEDS: ISOSORB DINIT/HYDRALAZINE HCL 20/37.5MG TABLET PO SCH ×2 (13:28→21:06)
[2020-04-20 16:00] VITALS: BP 160/53
[2020-04-20] MEDS ORDERED: HYDRALAZINE HCL 50MG TABLET PO NR (17:30)
[2020-04-20] MEDS: SODIUM CHLORIDE 0.9% 1,000 ML IV SCH (17:44)
[2020-04-20 20:00] VITALS: BP 189/66
[2020-04-20] MEDS: ATORVASTATIN CALCIUM 20MG TABLET PO SCH (21:06)
[2020-04-20] MEDS: HYDRALAZINE HCL 50MG TABLET PO SCH (21:06)
[2020-04-21] VITALS: BP 107/65
[2020-04-21 04:00] VITALS: BP_SYST 134; BP_SYST 188; BP_DIAS 64; BP_DIAS 66
[2020-04-21] MEDS: ISOSORB DINIT/HYDRALAZINE HCL 20/37.5MG TABLET PO SCH (05:45)
[2020-04-21] MEDS: HYDRALAZINE HCL 50MG TABLET PO SCH (05:45)
[2020-04-21] MEDS: SODIUM CHLORIDE 0.9% 1,000 ML IV SCH (06:08)
[2020-04-21] MEDS: BLOOD SUGAR DIAGNOSTIC STRIP TEST SCH ×2 (07:10→11:25)
[2020-04-21 07:12] LABS: BASOPHILS % 0.4 % (0.0-2.0); EOSINOPHILS % 2.5 % (0.0-5.0); HEMATOCRIT. 25.5 % (42.0-52.0); HEMOGLOBIN. 8.2 g/dL (14.0-18.0); LYMPHOCYTES % 15.8 % (20.0-50.0); MEAN CORPUSCULAR HEMOGLOBIN 29.3 pg (28.0-32.0); MEAN CORPUSCULAR VOLUME 91.7 fL (80.0-94.0); MEAN PLATELET VOLUME 8.1 fl (7.4-10.4); MONOCYTES % 8.4 % (2.0-8.0); NEUTROPHILS % 72.9 % (40.0-76.0); PLATELET 212 x1000/uL (130-400); RED BLOOD CELL COUNT 2.78 mill/uL (4.7-6.1)
[2020-04-21] MEDS: INSULIN LISPRO 100 UNITS/ML SUBCUT SCH ×2 (07:40→11:40)
[2020-04-21 08:00] VITALS: BP 145/121
[2020-04-21 08:44] LABS: CHLORIDE 115 mEq/L (98-107)
[2020-04-21] MEDS: SODIUM BICARBONATE 650 MG TABLET PO SCH (08:50)
[2020-04-21] MEDS: FERROUS SULFATE 325MG TABLET PO SCH ×2 (08:50→11:40)
[2020-04-21] MEDS ORDERED: NIFEDIPINE XL 60MG TAB PO SCH (09:00)
[2020-04-21] MEDS ORDERED: AMLODIPINE 10MG TABLET PO SCH (10:00)
[2020-04-21 12:00] VITALS: BP 135/80
[2020-04-21 13:06] VITALS: BP 135/85
[2020-04-21] MEDS ORDERED: ISOSORBIDE DINITRATE 20MG TABLET PO SCH (14:00)
[2020-04-21] MEDS ORDERED: HYDRALAZINE HCL 25MG TABLET PO SCH (14:00)
== END 2020-04-21 14:15 | disposition home health service (06) | DRG 377 ==
LOC: ER 14:50 → 8WST 18:26 → ENRESERV 20:56
PROVIDERS: ADMIT Specialist; ATTEND Specialist
PROC: 30233N1 Transfusion of Nonautologous Red Blood Cells into Peripheral Vein, Percutaneous Approach (ICD-10-PCS; principal; 2020-04-19)
DX: K92.2 Gastrointestinal hemorrhage, unspecified (principal); I50.33 Acute on chronic diastolic (congestive) heart failure; N17.0 Acute kidney failure with tubular necrosis; D62 Acute posthemorrhagic anemia; I13.0 Hypertensive heart and chronic kidney disease with heart failure and stage 1 through stage 4 chronic kidney disease, or unspecified chronic kidney disease; I45.2 Bifascicular block; Q27.30 Arteriovenous malformation, site unspecified; J84.9 Interstitial pulmonary disease, unspecified; E87.2 Acidosis; E46 Unspecified protein-calorie malnutrition; K56.609 Unspecified intestinal obstruction, unspecified as to partial versus complete obstruction; N18.4 Chronic kidney disease, stage 4 (severe); E11.22 Type 2 diabetes mellitus with diabetic chronic kidney disease; E78.5 Hyperlipidemia, unspecified; E87.5 Hyperkalemia; I25.10 Atherosclerotic heart disease of native coronary artery without angina pectoris; N18.9 Chronic kidney disease, unspecified; E11.51 Type 2 diabetes mellitus with diabetic peripheral angiopathy without gangrene; E78.00 Pure hypercholesterolemia, unspecified; R00.1 Bradycardia, unspecified; J44.9 Chronic obstructive pulmonary disease, unspecified; R06.82 Tachypnea, not elsewhere classified; E11.43 Type 2 diabetes mellitus with diabetic autonomic (poly)neuropathy; Z79.899 Other long term (current) drug therapy; Z90.49 Acquired absence of other specified parts of digestive tract; Z95.1 Presence of aortocoronary bypass graft; Z87.891 Personal history of nicotine dependence; Z68.21 Body mass index [BMI] 21.0-21.9, adult; Z79.82 Long term (current) use of aspirin; Z79.84 Long term (current) use of oral hypoglycemic drugs; I45.10 Unspecified right bundle-branch block
CPT/HCPCS: 36415; 76770; 80053; 80061; 81003; 82270; 82570; 82962; 83036; 83540; 83550; 83735; 83880; 84156; 85025; 86850; 86900; 86920; 93005; 93306; 99285; P9016

== ENCOUNTER → 2020-10-31 | Day surgery (SDC) | payer MEDICARE ==
[~2020-10-31] VITALS: Ht 182.9 cm; Wt 68.0 kg
[~2020-10-31] MED LIST changes: +ASPI-1497 PO; +ATOR-2 PO; +AZIL80TA PO; +CEFAZOLIN SODIUM 1000MG/VIAL ONE; +CLOP75TA33 PO; +DOXA2TAB2 PO; +FLUMAZENIL 0.1 MG/ML 5ML VIAL IV ONE; +HEPARIN 1000 UNITS/ML 10ML ONE; +HYDROMORPHONE HCL/PF 2MG/ML CPJ IV PRN; +ISOS1TAB PO; +MIDAZOLAM HCL 5 MG/5 ML VIAL ONE; +MORPHINE SULFATE 2 MG/ML CPJ (NOT FOR IM USE) IV PRN; +NEBI5TAB3 PO; +NIFE90TA60 PO; +ONDANSETRON HCL 4MG/2ML INJ IV PRN; +PATI8.4P PO; +PROPOFOL 200MG/20ML VIAL IV ONE; +ROPIVACAINE HCL 10MG/ML 20 ML VIAL EPI ONE; +SODI650T PO; +SODIUM CHLORIDE 0.9% 1,000 ML IV NR; +SODIUM CHLORIDE 0.9% 1,000 ML IV SCH; +SODIUM CHLORIDE 0.9% 500 ML IV ONE; +SUCCINYLCHOLINE CHLORIDE 200MG/10ML IV ONE
[2020-10-31 10:11] LABS: BASOPHILS % 0.9 % (0.0-2.0); EOSINOPHILS % 3.5 % (0.0-5.0); HEMATOCRIT. 26.6 % (42.0-52.0); HEMOGLOBIN. 8.6 g/dL (14.0-18.0); LYMPHOCYTES % 21.9 % (20.0-50.0); MEAN CORPUSCULAR HEMOGLOBIN 28.4 pg (28.0-32.0); MEAN CORPUSCULAR VOLUME 87.3 fL (80.0-94.0); MEAN PLATELET VOLUME 7.5 fl (7.4-10.4); MONOCYTES % 8.8 % (2.0-8.0); NEUTROPHILS % 64.9 % (40.0-76.0); PLATELET 263 x1000/uL (130-400); RED BLOOD CELL COUNT 3.04 mill/uL (4.7-6.1); RED CELL DISTRIBUTION WIDTH 16.2 % (11.6-14.6)
[2020-10-31 10:20] LABS: INR 1.1; PARTIAL THROMBOPLASTIN TIME 31.1 sec (23.4-31.0); PROTHROMBIN TIME 11.4 sec (9.6-11.0)
== END | disposition home or self-care (01) ==
LOC: OR 09:18
PROVIDERS: ATTEND Surgery Vascular Surgery
DX: I12.0 Hypertensive chronic kidney disease with stage 5 chronic kidney disease or end stage renal disease (principal); N18.6 End stage renal disease; E11.22 Type 2 diabetes mellitus with diabetic chronic kidney disease; J44.9 Chronic obstructive pulmonary disease, unspecified; Z79.82 Long term (current) use of aspirin; Z79.84 Long term (current) use of oral hypoglycemic drugs; Z79.899 Other long term (current) drug therapy; Z98.890 Other specified postprocedural states; Z87.891 Personal history of nicotine dependence
CPT/HCPCS: 36415; 36830; 80048; 82962; 85025; 85610; 85730; 93005; C1768; J0330; J0690; J1644; J2250; J2704; J2795; J3490; J7040; A4565

== ENCOUNTER → 2020-11-28 | Outpatient (CLI) | payer MEDICARE ==
[~2020-11-28] MED LIST changes: -CEFAZOLIN SODIUM 1000MG/VIAL ONE; -FLUMAZENIL 0.1 MG/ML 5ML VIAL IV ONE; -HEPARIN 1000 UNITS/ML 10ML ONE; -HYDROMORPHONE HCL/PF 2MG/ML CPJ IV PRN; -MIDAZOLAM HCL 5 MG/5 ML VIAL ONE; -MORPHINE SULFATE 2 MG/ML CPJ (NOT FOR IM USE) IV PRN; -ONDANSETRON HCL 4MG/2ML INJ IV PRN; -PROPOFOL 200MG/20ML VIAL IV ONE; -ROPIVACAINE HCL 10MG/ML 20 ML VIAL EPI ONE; -SODIUM CHLORIDE 0.9% 1,000 ML IV NR; -SODIUM CHLORIDE 0.9% 1,000 ML IV SCH; -SODIUM CHLORIDE 0.9% 500 ML IV ONE; -SUCCINYLCHOLINE CHLORIDE 200MG/10ML IV ONE
== END | disposition home or self-care (01) ==
LOC: RAD 14:55
PROVIDERS: ATTEND Internal Medicine Nephrology
DX: R06.02 Shortness of breath (principal); I70.0 Atherosclerosis of aorta
CPT/HCPCS: 71045

== ENCOUNTER 2022-07-25 02:59 | Inpatient (IN) | payer MEDICARE ==
[~2022-07-25] VITALS: Ht 180.3 cm; Wt 66.2 kg
[~2022-07-25 02:59] MED LIST changes: -ISOS1TAB PO; +ISOS1TAB2 PO
[2022-07-25 04:05] LABS: BASOPHILS % 0.6 % (0.0-2.0); EOSINOPHILS % 0.4 % (0.0-5.0); HEMATOCRIT. 33.1 % (42.0-52.0); HEMOGLOBIN. 10.9 g/dL (14.0-18.0); LYMPHOCYTES % 13.1 % (20.0-50.0); MEAN CORPUSCULAR HEMOGLOBIN 33.7 pg (28.0-32.0); MEAN CORPUSCULAR VOLUME 102.9 fL (80.0-94.0); MEAN PLATELET VOLUME 8.9 fl (7.4-10.4); MONOCYTES % 9.5 % (2.0-8.0); NEUTROPHILS % 76.4 % (40.0-76.0); PLATELET 211 x1000/uL (130-400); RED BLOOD CELL COUNT 3.22 mill/uL (4.7-6.1); RED CELL DISTRIBUTION WIDTH 16.9 % (11.6-14.6)
[2022-07-25 04:12] LABS: CHLORIDE 95 mEq/L (98-107)
[2022-07-25 10:45] VITALS: BP 102/59
[2022-07-25] MEDS ORDERED: IPRATROPIUM/ALBUTEROL 0.5-3(2.5)MG/3ML NEB HHN PRN (10:45)
[2022-07-25] MEDS ORDERED: ONDANSETRON HCL 4MG/2ML INJ IV PRN (10:45)
[2022-07-25] MEDS ORDERED: ACETAMINOPHEN 325MG TABLET PO PRN (10:45)
[2022-07-25] MEDS ORDERED: CLONIDINE 0.1MG TABLET PO PRN (10:45)
[2022-07-25] MEDS ORDERED: MORPHINE SULFATE 2 MG/ML CPJ (NOT FOR IM USE) IV PRN (10:45)
[2022-07-25] MEDS ORDERED: DIPHENHYDRAMINE 50MG/ML VIAL IV PRN (10:45)
[2022-07-25] MEDS ORDERED: NALOXONE HCL 0.4MG/ML VIAL IV PRN (11:15)
[2022-07-25 12:00] VITALS: BP 118/68
[2022-07-25] MEDS ORDERED: ENOXAPARIN 80MG/0.8ML SYR SUBCUT SCH (12:00)
[2022-07-25] MEDS ORDERED: DEXTROSE 50% WATER 50ML SYRINGE IV PRN (13:30)
[2022-07-25] MEDS: NIFEDIPINE XL 90MG TAB PO SCH (13:30)
[2022-07-25] MEDS: NITROGLYCERIN OINT 1GM/INCH UDPKT TD SCH ×2 (13:43→21:27)
[2022-07-25 14:07] VITALS: BP 118/68
[2022-07-25 16:32] VITALS: BP 132/71
[2022-07-25] MEDS: INSULIN LISPRO 100 UNITS/ML SUBCUT SCH ×2 (17:10→21:00)
[2022-07-25] MEDS: BLOOD SUGAR DIAGNOSTIC STRIP TEST SCH ×2 (17:20→21:00)
[2022-07-25 18:37] LABS: INR 1.3; PROTHROMBIN TIME 14.1 sec (9.6-11.0)
[2022-07-25 20:00] VITALS: BP 141/80
[2022-07-25] MEDS ORDERED: ATORVASTATIN CALCIUM 40MG TABLET PO SCH (21:00)
[2022-07-26] VITALS: BP 130/72
[2022-07-26 04:00] VITALS: BP 127/70
[2022-07-26] MEDS: NITROGLYCERIN OINT 1GM/INCH UDPKT TD SCH ×2 (06:33→14:57)
[2022-07-26] MEDS: BLOOD SUGAR DIAGNOSTIC STRIP TEST SCH ×3 (06:33→17:07)
[2022-07-26] MEDS: INSULIN LISPRO 100 UNITS/ML SUBCUT SCH ×3 (06:37→17:08)
[2022-07-26] MEDS ORDERED: LIDOCAINE HCL/PF 1% 10 MG/ML 5ML VIAL ONE (07:52)
[2022-07-26 08:00] VITALS: BP 151/87
[2022-07-26] MEDS ORDERED: CLOPIDOGREL 75MG TABLET PO SCH (09:00)
[2022-07-26] MEDS ORDERED: ASPIRIN 81MG EC TABLET PO SCH (09:00)
[2022-07-26] MEDS ORDERED: EZETIMIBE 10MG TABLET PO SCH (09:00)
[2022-07-26] MEDS ORDERED: FERROUS SULFATE 325MG TABLET PO SCH (09:00)
[2022-07-26] MEDS ORDERED: DOXAZOSIN MESYLATE 2MG TABLET PO SCH (09:00)
[2022-07-26] MEDS: NIFEDIPINE XL 90MG TAB PO SCH (09:26)
[2022-07-26 12:00] VITALS: BP 113/53
[2022-07-26] MEDS ORDERED: ENOXAPARIN 80MG/0.8ML SYR SUBCUT SCH (12:00)
[2022-07-26 14:46] LABS: BASOPHILS % 0.4 % (0.0-2.0); EOSINOPHILS % 0.8 % (0.0-5.0); HEMATOCRIT. 25.7 % (42.0-52.0); HEMOGLOBIN. 8.5 g/dL (14.0-18.0); LYMPHOCYTES % 11.2 % (20.0-50.0); MEAN CORPUSCULAR HEMOGLOBIN 32.6 pg (28.0-32.0); MEAN CORPUSCULAR VOLUME 98.7 fL (80.0-94.0); MEAN PLATELET VOLUME 9.3 fl (7.4-10.4); NEUTROPHILS % 80.6 % (40.0-76.0); PLATELET 170 x1000/uL (130-400); RED CELL DISTRIBUTION WIDTH 16.3 % (11.6-14.6)
[2022-07-26 14:49] LABS: CHLORIDE 93 mEq/L (98-107)
[2022-07-26 15:15] LABS: HEPATITIS B SURFACE ANTIGEN NEGATIVE
[2022-07-26 16:00] VITALS: BP 91/37
[2022-07-26] MEDS ORDERED: MIDODRINE HCL 5MG TABLET PO SCH (17:00)
[2022-07-26] MEDS ORDERED: SODIUM CHLORIDE 0.9% 1,000 ML IV SCH (17:00)
[2022-07-26] MEDS ORDERED: POTASSIUM CHLORIDE INJ 40 MEQ in DEXT 5% WATER 250 ML IV NR (18:00)
== END 2022-07-26 23:38 ==
LOC: ER 02:59 → EDBEDREQ 08:21 → EDBEDREQTM 08:21 → ENRESERV 09:51 → 7EST 10:33
PROVIDERS: ADMIT Family Medicine Adult Medicine; ATTEND Family Medicine Adult Medicine
PROC: 0BH17EZ Insertion of Endotracheal Airway into Trachea, Via Natural or Artificial Opening (ICD-10-PCS; principal; 2022-07-26)
PROC: 02HV33Z Insertion of Infusion Device into Superior Vena Cava, Percutaneous Approach (ICD-10-PCS; 2022-07-26)
PROC: B548ZZA Ultrasonography of Superior Vena Cava, Guidance (ICD-10-PCS; 2022-07-26)
DX: I21.4 Non-ST elevation (NSTEMI) myocardial infarction (principal); I50.31 Acute diastolic (congestive) heart failure; N18.6 End stage renal disease; I13.2 Hypertensive heart and chronic kidney disease with heart failure and with stage 5 chronic kidney disease, or end stage renal disease; E11.51 Type 2 diabetes mellitus with diabetic peripheral angiopathy without gangrene; I25.119 Atherosclerotic heart disease of native coronary artery with unspecified angina pectoris; E11.22 Type 2 diabetes mellitus with diabetic chronic kidney disease; I27.20 Pulmonary hypertension, unspecified; I08.3 Combined rheumatic disorders of mitral, aortic and tricuspid valves; J44.9 Chronic obstructive pulmonary disease, unspecified; Z95.1 Presence of aortocoronary bypass graft; Z95.5 Presence of coronary angioplasty implant and graft; Z99.2 Dependence on renal dialysis; Z99.81 Dependence on supplemental oxygen; Z79.899 Other long term (current) drug therapy
CPT/HCPCS: 36415; 36573; 71045; 80053; 82962; 83036; 83605; 83735; 83880; 84484; 85025; 86705; 86709; 86803; 87340; 93005; 93306; 93970; 99285; C1725; C1893; J1650; J3480; J3490; J7030; J7060; L8514